=== PATIENT | male | born 1990 ===

== ENCOUNTER 2017-12-01 21:40 | Emergency (ER) | payer MEDICAID ==
[2017-12-01 21:40] VITALS: BMI 28.0
[2017-12-01 21:48] VITALS: BP 161/90; PULSE 88; RESP 16; TEMP 98; O2SAT 98
--- NOTE | 2017-12-01 23:01 | ED PDOC ---
HPI: Psych/Substance Abuse Time Seen by Provider: 12/01/17 21:56 Chief Complaint (Nursing): Substance Abuse Chief Complaint (Provider): PCPC use - Denies complaints History Per: Patient History/Exam Limitations: no limitations Onset/Duration Of Symptoms: Hrs Additional Complaint(s): 27 yo male with no medical problems brought in by EMS for evaluation of drug use. Pt reports using PCP earlier today. PT denies complaint. Pt alert and oriented. Past Medical History Reviewed: Historical Data, Nursing Documentation, Vital Signs Vital Signs: Last Vital Signs Temp 98.0 F 12/01/17 21:45 Pulse 88 12/01/17 21:45 Resp 16 12/01/17 21:45 BP 161/90 H 12/01/17 21:45 Pulse Ox 98 12/01/17 21:45 - Medical History PMH: Anxiety, Arthritis, Bipolar Disorder, Bronchitis, Depression Denies: Diabetes, Hepatitis, HIV, HTN, Chronic Kidney Disease, Seizures, Sexually Transmitted Disease - Surgical History Surgical History: Hernia Repair (ventral) - Family History Family History: States: Unknown Family Hx - Living Arrangements Living Arrangements: With Family - Social History Current smoker - smoking cessation education provided: No - Immunization History Hx Tetanus Toxoid Vaccination: Yes - Home Medications Home Medications: Ambulatory Orders Medication Instructions Recorded Cephalexin [Keflex] 500 mg PO Q6 #28 capsule 06/23/16 Polyethylene Glycol 3350 [Miralax] 17 gm PO DAILY PRN #30 each 08/07/16 Ibuprofen [Motrin] 600 mg PO Q6 #20 tab 11/28/16 oxyCODONE/Acetaminophen [Percocet 1 ea PO Q6 PRN #5 tab 11/28/16 5/325 mg Tab] Acetaminophen [Tylenol Extra 500 mg PO Q6 #20 tablet 11/29/16 Strength] Naproxen [Naprosyn] 500 mg PO BID PRN #15 tablet 12/05/16 - Allergies Allergies/Adverse Reactions: Allergies Allergy/AdvReac Type Severity Reaction Status Date / Time No Known Allergies Allergy Verified 12/01/17 21:45 Review of Systems ROS Statement: Except As Marked, All Systems Reviewed And Found Negative Constitutional: Negative for: Fever, Chills Cardiovascular: Negative for: Chest Pain Respiratory: Negative for: Cough, Shortness of Breath Gastrointestinal: Negative for: Nausea, Vomiting, Abdominal Pain Psych: Negative for: Depression, Psychosis, Suicidal ideation Physical Exam - Reviewed Nursing Documentation Reviewed: Yes Vital Signs Reviewed: Yes - Physical Exam Appears: Positive for: Well, Non-toxic, No Acute Distress Head Exam: Positive for: ATRAUMATIC, NORMAL INSPECTION, NORMOCEPHALIC Skin: Positive for: Normal Color, Warm, DRY Eye Exam: Positive for: Normal appearance, EOMI, PERRL ENT: Positive for: Normal ENT Inspection Neck: Positive for: Normal, Painless ROM Cardiovascular/Chest: Positive for: Regular Rate, Rhythm Respiratory: Positive for: CNT, Normal Breath Sounds Gastrointestinal/Abdominal: Positive for: Normal Exam, Bowel Sounds, Soft Back: Positive for: Normal Inspection Extremity: Positive for: Normal ROM Neurologic/Psych: Positive for: Alert, Oriented - ECG O2 Sat by Pulse Oximetry: 98 Disposition - Clinical Impression Clinical Impression: Phencyclidine (PCP) use disorder, mild - Patient ED Disposition Is Patient to be Admitted: No - Disposition Disposition: Routine/Home Disposition Time: 23:03 Condition: GOOD Instructions: Drug Abuse and Drug Addiction (DC)
== END 2017-12-02 00:15 | disposition home or self-care (01) ==
LOC: H.ER 21:40
DX: F16.10 Hallucinogen abuse, uncomplicated (principal)

== ENCOUNTER 2017-12-07 | Emergency (ER) | payer MEDICAID ==
[2017-12-07 00:01] VITALS: BMI 28.0
[2017-12-07 00:12] VITALS: O2SAT 97
--- NOTE | 2017-12-07 00:44 | ED PDOC ---
HPI: Psych/Substance Abuse Chief Complaint (Provider): edp Additional Complaint(s): 27 y/o male brought in by EMS for evaluation. Patient was found walking streets with bizarre behavior. Patient awake, unwilling to answer questions. Denies drug/alcohol use. Here for PCP use last week as per chart. <Katheryn Francis - Last Filed: 12/07/17 06:07> <Hany Rogers - Last Filed: 12/07/17 08:03> Time Seen by Provider: 12/07/17 00:17 Chief Complaint (Nursing): Psychiatric Evaluation Supervising Attending Note - Attestation: I have personally seen and examined this patient.: Yes I have fully participated in the care of the patient.: Yes I have reviewed all pertinent clinical information, including history, physical exam and plan: Yes - Notes: Notes:: [address] Arevalo pending Crisis eval. Pt. too sedated at this time for eval. <Hany Rogers - Last Filed: 12/07/17 08:03> Past Medical History Reviewed: Historical Data, Nursing Documentation, Vital Signs Vital Signs: Last Vital Signs Temp 98.4 F 12/07/17 00:08 Pulse 96 H 12/07/17 00:08 Resp 17 12/07/17 00:08 BP 146/93 H 12/07/17 00:08 Pulse Ox 97 12/07/17 00:08 - Medical History PMH: Anxiety, Arthritis, Bipolar Disorder, Bronchitis, Depression Denies: Diabetes, Hepatitis, HIV, HTN, Chronic Kidney Disease, Seizures, Sexually Transmitted Disease - Surgical History Surgical History: Hernia Repair (ventral) - Family History Family History: States: Unknown Family Hx - Immunization History Hx Tetanus Toxoid Vaccination: Yes <Katheryn Francis - Last Filed: 12/07/17 06:07> Vital Signs: Last Vital Signs Temp 98.4 F 12/07/17 00:08 Pulse 70 12/07/17 04:59 Resp 18 12/07/17 04:59 BP 124/93 H 12/07/17 04:59 Pulse Ox 97 12/07/17 06:08 <Hany Rogers - Last Filed: 12/07/17 08:03> - Home Medications Home Medications: Ambulatory Orders Medication Instructions Recorded Cephalexin [Keflex] 500 mg PO Q6 #28 capsule 06/23/16 Polyethylene Glycol 3350 [Miralax] 17 gm PO DAILY PRN #30 each 08/07/16 Ibuprofen [Motrin] 600 mg PO Q6 #20 tab 11/28/16 oxyCODONE/Acetaminophen [Percocet 1 ea PO Q6 PRN #5 tab 11/28/16 5/325 mg Tab] Acetaminophen [Tylenol Extra 500 mg PO Q6 #20 tablet 11/29/16 Strength] Naproxen [Naprosyn] 500 mg PO BID PRN #15 tablet 12/05/16 - Allergies Allergies/Adverse Reactions: Allergies Allergy/AdvReac Type Severity Reaction Status Date / Time No Known Allergies Allergy Verified 12/07/17 00:12 Review of Systems ROS Statement: Except As Marked, All Systems Reviewed And Found Negative Psych: Positive for: Psychosis <Katheryn Francis - Last Filed: 12/07/17 06:07> Physical Exam - Reviewed Nursing Documentation Reviewed: Yes Vital Signs Reviewed: Yes - Physical Exam Appears: Positive for: Well, Non-toxic, Uncomfortable (pacing outside exam room) Head Exam: Positive for: ATRAUMATIC, NORMAL INSPECTION, NORMOCEPHALIC Skin: Positive for: Normal Color Eye Exam: Positive for: Normal appearance Cardiovascular/Chest: Positive for: Regular Rate, Rhythm Respiratory: Positive for: Normal Breath Sounds Gastrointestinal/Abdominal: Positive for: Normal Exam Back: Positive for: Normal Inspection Extremity: Positive for: Normal ROM Neurologic/Psych: Positive for: Alert (x2) <Katheryn Francis - Last Filed: 12/07/17 06:07> - Laboratory Results Result Diagrams: 12/07/17 01:29 12/07/17 01:29 - ECG O2 Sat by Pulse Oximetry: 97 - Progress ED Course And Treament: labs, urine Patient uncooperative; refusing to return to exam bed or change in to hospital gown. Patient unwilling to comply with alternative measures offered; patient restrained and medicated for acute agitation/psychosis. 2:30 Patient sleeping; no distress 4:00 Patient sleeping; no distress 5:30 Patient awake, agitated. Stating "I am God, look at me" Patient out of exam room , refusing to return to room or provide urine sample. Patient restrained and medicated for agitation. <Katheryn Francis - Last Filed: 12/07/17 06:07> - Laboratory Results Result Diagrams: 12/07/17 01:29 12/07/17 01:29 <Hany Rogers - Last Filed: 12/07/17 08:03> Disposition - Disposition Disposition Time: 06:00 Patient Signed Over To: Hany Rogers Handoff Comments: pending uds, crisis eval <Katheryn Francis - Last Filed: 12/07/17 06:07> <Hany Rogers - Last Filed: 12/07/17 08:03> - Clinical Impression Clinical Impression: Phencyclidine (PCP) use disorder, mild - Disposition Condition: STABLE Forms: [employer] (Russian)
[2017-12-07 01:33] LABS: BASO # 0.1 K/uL (0.0-0.2); BASO % 0.4 % (0.0-2.0); EOS # 0.1 K/uL (0.0-0.7); EOS % 0.4 % (0.0-4.0); HEMOGLOBIN 15.2 g/dL (12.0-18.0); LYMPH % 14.7 % (20.0-40.0); MEAN CELL VOLUME 92.3 fl (80.0-94.0); MEAN CORPUSCULAR HGB CONC 33.6 g/dL (33.0-37.0); MEAN PLATELET VOLUME 7.4 fl (7.2-11.7); MONO # 1.1 K/uL (0.0-0.8); MONO % 8.4 % (0.0-10.0); NEUT # 10.3 K/uL (1.8-7.0); NEUT % 76.1 % (50.0-75.0); RBC 4.91 Mil/uL (4.40-5.90); RED CELL DISTRIBUTION WIDTH 13.8 % (11.5-14.5); WHITE BLOOD COUNT 13.5 K/uL (4.8-10.8)
[2017-12-07 01:41] LABS: ALB/GLOB RATIO 1.4 (1.0-2.1); ALBUMIN 4.4 g/dL (3.5-5.0); ALT/SGPT 47 U/L (21-72); AST/SGOT 78 U/L (17-59); BLOOD UREA NITROGEN 17 mg/dl (9-20); CALCIUM 9.4 mg/dL (8.4-10.2); GFR AFRICAN-AMERICAN > 60; GFR NON-AFRICAN AMERICAN > 60
[2017-12-07 05:58] LABS: URINE BACTERIA RARE (<OCC); URINE BILIRUBIN NEGATIVE (NEGATIVE); URINE BLOOD MODERATE (NEGATIVE); URINE CLARITY CLOUDY (Clear); URINE COLOR AMBER (YELLOW); URINE GLUCOSE (UA) NEG (Normal); URINE LEUKOCYTE ESTERASE NEG Leu/uL (Negative); URINE NITRATE NEGATIVE (NEGATIVE); URINE PROTEIN 100 mg/dL (NEGATIVE)
[2017-12-07 06:06] LABS: BARBITURATES, UR NEGATIVE (NEGATIVE); BENZODIAZEPINES, UR NEGATIVE (NEGATIVE); OPIATES, UR NEGATIVE (NEGATIVE); PHENCYCLIDINE, UR POSITIVE (NEGATIVE)
--- NOTE | 2017-12-07 08:45 | ED PDOC ---
- Laboratory Results Result Diagrams: 12/07/17 01:29 12/07/17 01:29 - ECG O2 Sat by Pulse Oximetry: 97 Medical Decision Making Medical Decision Making: Time: 07:00 Patient signed out to me by Dr. Rogers pending crisis evaluation. Time: 11:30 Patient will be discharged as per crisis Dr. Haas. Scribe Attestation: Documented by Magdy Martinez, acting as a scribe for Katlyn Arvealo MD. Provider Scribe Attestation: All medical record entries made by the Scribe were at my direction and personally dictated by me. I have reviewed the chart and agree that the record accurately reflects my personal performance of the history, physical exam, medical decision making, and the department course for this patient. I have also personally directed, reviewed, and agree with the discharge instructions and disposition. Disposition Counseled Patient/Family Regarding: Studies Performed, Diagnosis, Need For Followup - Clinical Impression Clinical Impression: Phencyclidine (PCP) use disorder, mild - POA Present On Arrival: None - Disposition Referrals: [facility] [Outside] [facility] [Outside] Disposition: Routine/Home Disposition Time: 11:20 Condition: IMPROVED Additional Instructions: follow up with outpatient services return to the ED with any worsening or concerning symptoms Instructions: Polysubstance Abuse Forms: [employer] (Citizen Of [place])
[2017-12-07 13:21] VITALS: BP 120/70; PULSE 78; RESP 20; TEMP 98
== END 2017-12-07 13:23 | disposition home or self-care (01) ==
LOC: H.ER
DX: F16.10 Hallucinogen abuse, uncomplicated (principal); Z00.8 Encounter for other general examination
CPT/HCPCS: 80053; 80320; 80324; 80345; 80346; 80349; 80353; 80358; 80361; 81003; 82948; 83992; 85025; 96372; 99285; J1630; J2060

== ENCOUNTER 2017-12-10 17:54 | Emergency (ER) | payer MEDICAID ==
[2017-12-10 17:55] VITALS: BMI 28.0
[2017-12-10 18:27] LABS: BASO # 0.1 K/uL (0.0-0.2); BASO % 0.5 % (0.0-2.0); EOS # 0.2 K/uL (0.0-0.7); EOS % 1.5 % (0.0-4.0); HEMOGLOBIN 15.3 g/dL (12.0-18.0); LYMPH # 2.4 K/uL (1.0-4.3); LYMPH % 16.9 % (20.0-40.0); MEAN CORPUSCULAR HGB CONC 33.4 g/dL (33.0-37.0); MEAN PLATELET VOLUME 7.5 fl (7.2-11.7); MONO # 1.3 K/uL (0.0-0.8); MONO % 9.2 % (0.0-10.0); NEUT # 10.3 K/uL (1.8-7.0); NEUT % 71.9 % (50.0-75.0); NRBC % 0.1 % (0.0-0.0); RBC 4.93 Mil/uL (4.40-5.90); RED CELL DISTRIBUTION WIDTH 13.6 % (11.5-14.5); WHITE BLOOD COUNT 14.3 K/uL (4.8-10.8)
--- NOTE | 2017-12-10 18:32 | ED PDOC ---
HPI: Psych/Substance Abuse Time Seen by Provider: 12/10/17 18:07 Chief Complaint (Nursing): Substance Abuse Chief Complaint (Provider): Psych and drug intoxication ED Caveat: Intoxicated History Per: Patient History/Exam Limitations: intoxication Onset/Duration Of Symptoms: Unknown, Other Current Symptoms Are (Timing): Still Present Additional Complaint(s): 27 yo male, brought in by EMS, with a history of Bipolar disorder, present to the ED complaining of chest pain, shortness of breath, psych evaluation, and drug intoxication, onset unknown. Patient was found in the hallway of his mother 's apartment after his mother had called the police. Of note, mother has a restraining order filed against the patient. Patient admits to using marijuana, but denies any other drug use. Reviews of Systems were unobtainable secondary to the patient's intoxicated status. Patient reports "being with god" and "seeing Rene". Past Medical History Reviewed: Historical Data, Nursing Documentation, Vital Signs Vital Signs: Last Vital Signs Temp 98.0 F 12/10/17 18:00 Pulse 88 12/10/17 18:00 Resp 16 12/10/17 18:00 BP 158/99 H 12/10/17 18:00 Pulse Ox 99 12/10/17 18:00 - Medical History PMH: Anxiety, Arthritis, Bipolar Disorder, Bronchitis, Depression Denies: Diabetes, Hepatitis, HIV, HTN, Chronic Kidney Disease, Seizures, Sexually Transmitted Disease - Surgical History Surgical History: Hernia Repair (ventral) - Family History Family History: States: Unknown Family Hx - Social History Current smoker - smoking cessation education provided: Yes (heavy smokes > 10 cigarettes daily) Ex-Smoker (has not smoked in the last 12 months): No Alcohol: Social Drugs: Cannabis - Immunization History Hx Tetanus Toxoid Vaccination: Yes - Home Medications Home Medications: Ambulatory Orders Medication Instructions Recorded Cephalexin [Keflex] 500 mg PO Q6 #28 capsule 06/23/16 Polyethylene Glycol 3350 [Miralax] 17 gm PO DAILY PRN #30 each 08/07/16 Ibuprofen [Motrin] 600 mg PO Q6 #20 tab 11/28/16 oxyCODONE/Acetaminophen [Percocet 1 ea PO Q6 PRN #5 tab 11/28/16 5/325 mg Tab] Acetaminophen [Tylenol Extra 500 mg PO Q6 #20 tablet 11/29/16 Strength] Naproxen [Naprosyn] 500 mg PO BID PRN #15 tablet 12/05/16 - Allergies Allergies/Adverse Reactions: Allergies Allergy/AdvReac Type Severity Reaction Status Date / Time No Known Allergies Allergy Verified 12/07/17 00:12 Review of Systems ROS Statement: Except As Marked, All Systems Reviewed And Found Negative Review Of Systems: ROS cannot be obtained secondary to pt's inabilty to answer questions. (limited due to patient's intoxicated state) Cardiovascular: Positive for: Chest Pain Respiratory: Positive for: Shortness of Breath Psych: Negative for: Suicidal ideation (or homicidal ideation) Physical Exam - Reviewed Nursing Documentation Reviewed: Yes Vital Signs Reviewed: Yes - Physical Exam Appears: Positive for: In Acute Distress (psychiatric distress) Head Exam: Positive for: ATRAUMATIC, NORMOCEPHALIC Skin: Positive for: Warm, Dry Eye Exam: Positive for: EOMI, PERRL ENT: Positive for: Pharynx Is (clear), Other (dry mucus membranes). Negative for: Pharyngeal Erythema, Tonsillar Exudate Neck: Positive for: Painless ROM, Supple Cardiovascular/Chest: Positive for: Regular Rate, Rhythm. Negative for: Murmur Respiratory: Positive for: Normal Breath Sounds. Negative for: Wheezing Gastrointestinal/Abdominal: Positive for: Soft. Negative for: Tenderness Back: Positive for: Normal Inspection. Negative for: Decreased ROM Extremity: Positive for: Normal ROM. Negative for: Deformity Lymphatic: Negative for: Adenopathy Neurologic/Psych: Positive for: Alert, Oriented (x1), Other (responding to internal stimuli, has poor concentration, and disorganized though process). Negative for: Motor/Sensory Deficits - Laboratory Results Result Diagrams: 12/10/17 18:22 12/10/17 18:22 - ECG ECG: Positive for: Interpreted By Me, Viewed By Me ECG Rhythm: Positive for: Normal QRS, Normal ST Segment, Sinus Rhythm (normal) Rate: 65 O2 Sat by Pulse Oximetry: 99 (RA) Pulse Ox Interpretation: Normal - Critical Care Total Time (In Min): 30 Documented Critical Care: Time excludes all time spent performint seperately billable procedures Medical Decision Making Medical Decision Making: Time: --18:15 Impression: --Drug intoxication with h/o bipolar disorder Drug induced psychosis vs decompensated bipolar disorder vs electrolyte abnormality vs metabolic encephalopathy Pt agitated, trying to leave, danger to self and others. Pt medicated for relief of psychosis Plan: --ECG --Alcohol Serum --Labs --Drug Screen, Urine --magnesium --phosphorous --troponin I --ED Urine Dip --Chest X-ray Two views --Ativan 2mg IM --1:1 Observation --Haldol Reassess --1900 Pt sleeping comfortably. Sedated but arousable to deep stimulation. --2200 Sleeping comfortably. Stable. Scribe Attestation: Documented by Chandra Muir acting as a scribe for Jose Caceres MD. Provider Attestation: All medical record entries made by the Scribe were at my direction and personally dictated by me. I have reviewed the chart and agree that the record accurately reflects my personal performance of the history, physical exam, medical decision making, and the department course for this patient. I have also personally directed, reviewed, and agree with the discharge instructions and disposition. Disposition - Clinical Impression Clinical Impression: Psychosis - Disposition Disposition: Transfer of Care Disposition Time: 00:00 Condition: STABLE Patient Signed Over To: Hany Rogers Handoff Comments: Pending sobriety and reeval and final ER disposition
[2017-12-10 18:56] LABS: ALB/GLOB RATIO 1.3 (1.0-2.1); ALBUMIN 4.2 g/dL (3.5-5.0); ALT/SGPT 49 U/L (21-72); AST/SGOT 92 U/L (17-59); BLOOD UREA NITROGEN 16 mg/dl (9-20); CALCIUM 9.5 mg/dL (8.4-10.2); GFR AFRICAN-AMERICAN > 60; GFR NON-AFRICAN AMERICAN > 60; MAGNESIUM 2.1 MG/DL (1.6-2.3)
[2017-12-10 19:57] LABS: BARBITURATES, UR NEGATIVE (NEGATIVE); BENZODIAZEPINES, UR NEGATIVE (NEGATIVE); OPIATES, UR NEGATIVE (NEGATIVE); PHENCYCLIDINE, UR POSITIVE (NEGATIVE)
--- NOTE | 2017-12-11 01:07 | ED PDOC ---
- Laboratory Results Result Diagrams: 12/10/17 18:22 12/10/17 18:22 - ECG O2 Sat by Pulse Oximetry: 99 (RA) Medical Decision Making Medical Decision Making: Time: 00:00 Patient is signed over to me by Dr. Araceli Christy pending reevaluation. 0400 Patient is now awake, alert, oriented, steady gait, no longer religiously preoccupied. Stable for discharge. Scribe Attestation: Documented by Gen Olivier acting as a scribe for Hany Rogers MD. Scribe Attestation: All medical record entries made by the Scribe were at my direction and personally dictated by me. I have reviewed the chart and agree that the record accurately reflects my personal performance of the history, physical exam, medical decision making, and the department course for this patient. I have also personally directed, reviewed, and agree with the discharge instructions and disposition. Disposition - Clinical Impression Clinical Impression: Psychosis, Phencyclidine (PCP) use disorder, mild - POA Present On Arrival: None - Disposition Referrals: [facility] [Outside] Disposition: Routine/Home Disposition Time: 04:00 Condition: STABLE Instructions: Drug Abuse and Drug Addiction (DC), Drug Abuse Treatment Forms: [employer] (Qatari)
[2017-12-11 07:17] VITALS: RESP 19
[2017-12-11 07:18] VITALS: BP 117/63; PULSE 73; TEMP 98; O2SAT 100
--- NOTE | 2017-12-11 11:01 | RAD ---
HISTORY: chest pain COMPARISON: Comparison made with chest radiograph 12/05/2016 FINDINGS: LUNGS: No active pulmonary disease. PLEURA: No significant pleural effusion identified, no pneumothorax apparent. CARDIOVASCULAR: Normal. OSSEOUS STRUCTURES: No significant abnormalities. VISUALIZED UPPER ABDOMEN: Normal. OTHER FINDINGS: None. IMPRESSION: No active disease.
--- NOTE | 2017-12-13 12:23 | CARD ---
APPROVED REPORT EKG Measurement Heart [id number] <Conclusion> Normal sinus rhythm with sinus arrhythmia Incomplete right bundle branch block Left anterior fascicular block Abnormal ECG
== END 2017-12-11 07:18 | disposition home or self-care (01) ==
LOC: H.ER 17:54
DX: F29 Unspecified psychosis not due to a substance or known physiological condition (principal); F16.10 Hallucinogen abuse, uncomplicated; F31.9 Bipolar disorder, unspecified; F41.9 Anxiety disorder, unspecified; F12.90 Cannabis use, unspecified, uncomplicated; F17.210 Nicotine dependence, cigarettes, uncomplicated
CPT/HCPCS: 71045; 80053; 80320; 80324; 80345; 80346; 80349; 80353; 80358; 80361; 83735; 83992; 84100; 84484; 85025; 93005; 96372; 99285; J1630; J2060

== ENCOUNTER 2017-12-11 15:53 | Emergency (ER) | payer MEDICAID ==
[2017-12-11 15:54] VITALS: BMI 28.0
[2017-12-11 15:58] VITALS: TEMP 98.2; O2SAT 100
--- NOTE | 2017-12-11 16:26 | ED PDOC ---
HPI: Chest Pain Time Seen by Provider: 12/11/17 16:12 Chief Complaint (Nursing): Chest Pain Chief Complaint (Provider): Chest pain History Per: Patient History/Exam Limitations: no limitations Onset/Duration Of Symptoms: Mins Current Symptoms Are (Timing): Gone Now Associated Symptoms: denies: Nausea, Dyspnea, Diaphoresis, Syncope Additional Complaint(s): 27yo male, presents to ER with complaints of chest pain which started while he was riding his bicycle on his way to the police station. Patient reports feeling anxious and states that may have caused the chest pain. He states the pain has spontaneously resolved and he has no other complaints. He denies any shortness of breath, abdominal pain, weakness, headache, leg pain, numbness or tingling. No other complaints. Marijuana use. Not suicidal or homicidal. PCP 4 days ago. Under arrest for warrant. Past Medical History Reviewed: Historical Data, Nursing Documentation, Vital Signs Vital Signs: Last Vital Signs Temp 98.2 F 12/11/17 15:56 Pulse 105 H 12/11/17 15:56 Resp 96 H 12/11/17 15:56 BP 149/96 H 12/11/17 15:56 Pulse Ox 100 12/11/17 16:28 - Medical History PMH: Anxiety, Arthritis, Bipolar Disorder, Bronchitis, Depression Denies: Diabetes, Hepatitis, HIV, HTN, Chronic Kidney Disease, Seizures, Sexually Transmitted Disease - Surgical History Surgical History: Hernia Repair (ventral) - Family History Family History: States: Unknown Family Hx - Immunization History Hx Tetanus Toxoid Vaccination: Yes - Home Medications Home Medications: Ambulatory Orders Medication Instructions Recorded Cephalexin [Keflex] 500 mg PO Q6 #28 capsule 06/23/16 Polyethylene Glycol 3350 [Miralax] 17 gm PO DAILY PRN #30 each 08/07/16 Ibuprofen [Motrin] 600 mg PO Q6 #20 tab 11/28/16 oxyCODONE/Acetaminophen [Percocet 1 ea PO Q6 PRN #5 tab 11/28/16 5/325 mg Tab] Acetaminophen [Tylenol Extra 500 mg PO Q6 #20 tablet 11/29/16 Strength] Naproxen [Naprosyn] 500 mg PO BID PRN #15 tablet 12/05/16 - Allergies Allergies/Adverse Reactions: Allergies Allergy/AdvReac Type Severity Reaction Status Date / Time No Known Allergies Allergy Verified 12/07/17 00:12 Review of Systems ROS Statement: Except As Marked, All Systems Reviewed And Found Negative Constitutional: Negative for: Fever, Chills Cardiovascular: Positive for: Chest Pain (now resolved) Respiratory: Negative for: Shortness of Breath Gastrointestinal: Negative for: Abdominal Pain Musculoskeletal: Negative for: Leg Pain Neurological: Negative for: Weakness, Numbness Physical Exam - Reviewed Nursing Documentation Reviewed: Yes Vital Signs Reviewed: Yes - Physical Exam Appears: Positive for: Non-toxic, No Acute Distress Head Exam: Positive for: ATRAUMATIC, NORMAL INSPECTION, NORMOCEPHALIC Skin: Positive for: Normal Color Eye Exam: Positive for: Normal appearance Neck: Positive for: Supple Cardiovascular/Chest: Positive for: Regular Rate, Rhythm. Negative for: Murmur Respiratory: Positive for: Normal Breath Sounds. Negative for: Wheezing, Respiratory Distress Pulses-Dorsalis Pedis (L): 2+ Pulses-Dorsalis Pedis (R): 2+ Gastrointestinal/Abdominal: Positive for: Normal Exam, Soft. Negative for: Tenderness Back: Positive for: Normal Inspection. Negative for: L CVA Tenderness, R CVA Tenderness Extremity: Positive for: Normal ROM. Negative for: Pedal Edema, Deformity Neurologic/Psych: Positive for: Alert, Oriented - ECG O2 Sat by Pulse Oximetry: 100 (RA) Pulse Ox Interpretation: Normal - Progress ED Course And Treament: 1711: Stable. AAOx3. Pain free. Tolerated po. Fu with pcp. Crisis saw pt. Does not meet criteria for admit. Medical Decision Making Medical Decision Making: Impression: Chest pain now resolved Plan: -- EKG -- Crisis evaluation -- Motrin 600 mg PO Scribe Attestation: Documented by Bia Menezes acting as a scribe for Sourav Gonzáles MD. Provider Attestation: All medical record entries made by the Scribe were at my direction and personally dictated by me. I have reviewed the chart and agree that the record accurately reflects my personal performance of the history, physical exam, medical decision making, and the department course for this patient. I have also personally directed, reviewed, and agree with the discharge instructions and disposition. Disposition - Clinical Impression Clinical Impression: Chest wall pain, Medical clearance for incarceration - Patient ED Disposition Is Patient to be Admitted: No Counseled Patient/Family Regarding: Studies Performed, Diagnosis, Need For Followup - Disposition Referrals: [facility] [Outside] - 12/13/17 Disposition: Routine/Home Disposition Time: 17:13 Condition: STABLE Additional Instructions: Return if not better in 3 days. You are medically and psychiatrically cleared for incarceration. Instructions: Chest Pain That Is Not Caused by the Heart (DC)
[2017-12-11 17:40] VITALS: BP 140/90; PULSE 89; RESP 18
--- NOTE | 2017-12-13 12:16 | CARD ---
APPROVED REPORT EKG Measurement Heart [id number] <Conclusion> Normal sinus rhythm Left axis deviation Abnormal ECG
== END 2017-12-11 17:37 ==
LOC: H.ER 15:53
DX: R07.89 Other chest pain; F31.9 Bipolar disorder, unspecified; F41.9 Anxiety disorder, unspecified

== ENCOUNTER 2017-12-17 06:05 | Emergency (ER) | payer MEDICAID ==
[2017-12-17 06:05] VITALS: BMI 28.0
[2017-12-17 06:17] VITALS: BP 141/86; PULSE 94; RESP 18; O2SAT 99
--- NOTE | 2017-12-17 06:50 | ED PDOC ---
Lower Extremity Pain/Injury Time Seen by Provider: 12/17/17 06:25 Chief Complaint (Nursing): Lower Extremity Problem/Injury Chief Complaint (Provider): lower extremity problem History Per: Patient History/Exam Limitations: no limitations Onset/Duration Of Symptoms: Days (12/17/17) Current Symptoms Are (Timing): Better Additional Complaint(s): 27 y/o male presents to the ED complaining of foot pain. He was present in the ED waiting room stating he wanted to rest and then mentioned his feet hurt. Denies any injury or fever. PMD: Provider TBD Past Medical History Reviewed: Historical Data, Nursing Documentation, Vital Signs Vital Signs: Last Vital Signs Temp Pulse 94 H 12/17/17 06:14 Resp 18 12/17/17 06:14 BP 141/86 12/17/17 06:14 Pulse Ox 99 12/17/17 06:14 - Medical History PMH: Anxiety, Arthritis, Bipolar Disorder, Bronchitis, Depression Denies: Diabetes, Hepatitis, HIV, HTN, Chronic Kidney Disease, Seizures, Sexually Transmitted Disease - Surgical History Surgical History: Hernia Repair (ventral) - Family History Family History: States: Unknown Family Hx - Social History Current smoker - smoking cessation education provided: Yes Drugs: Other (PCP) - Immunization History Hx Tetanus Toxoid Vaccination: Yes - Home Medications Home Medications: Ambulatory Orders Medication Instructions Recorded Cephalexin [Keflex] 500 mg PO Q6 #28 capsule 06/23/16 Polyethylene Glycol 3350 [Miralax] 17 gm PO DAILY PRN #30 each 08/07/16 Ibuprofen [Motrin] 600 mg PO Q6 #20 tab 11/28/16 oxyCODONE/Acetaminophen [Percocet 1 ea PO Q6 PRN #5 tab 11/28/16 5/325 mg Tab] Acetaminophen [Tylenol Extra 500 mg PO Q6 #20 tablet 11/29/16 Strength] Naproxen [Naprosyn] 500 mg PO BID PRN #15 tablet 12/05/16 Ibuprofen [Motrin Tab] 600 mg PO Q6 PRN #12 tab 12/17/17 - Allergies Allergies/Adverse Reactions: Allergies Allergy/AdvReac Type Severity Reaction Status Date / Time No Known Allergies Allergy Verified 12/07/17 00:12 Review of Systems ROS Statement: Except As Marked, All Systems Reviewed And Found Negative Constitutional: Negative for: Fever Musculoskeletal: Positive for: Foot Pain Skin: Negative for: Other (injury) Physical Exam - Reviewed Nursing Documentation Reviewed: Yes Vital Signs Reviewed: Yes - Physical Exam Extremity: Positive for: Normal ROM. Negative for: Tenderness, Pedal Edema, Calf Tenderness, Capillary Refill, Deformity, Swelling - ECG O2 Sat by Pulse Oximetry: 99 (RA) Pulse Ox Interpretation: Normal Medical Decision Making Medical Decision Making: Time:06:40 Initial Impression: 27 y/o male with malingering foot pain. Clinical Impression: Foot pain, bilateral and Malingering Upon provider evaluation patient is medically stable, and requires no further treatment in the ED at this time. Patient will be discharged with Motrin 600mg for plantar fasciitis. Counseling was provided and all questions were answered regarding diagnosis and need for follow up with PMD. There is agreement to discharge plan. Return if symptoms persist or worsen. Documented by Elham Dowd acting as a scribe for Deni Holt MD. All medical record entries made by the Scribe were at my direction and personally dictated by me. I have reviewed the chart and agree that the record accurately reflects my personal performance of the history, physical exam, medical decision making, and the department course for this patient. I have also personally directed, reviewed, and agree with the discharge instructions and disposition. Disposition - Clinical Impression Clinical Impression: Foot pain, bilateral, Malingering - Patient ED Disposition Is Patient to be Admitted: No - Disposition Disposition: Routine/Home Disposition Time: 06:50 Condition: STABLE Prescriptions: Ibuprofen [Motrin Tab] 600 mg PO Q6 PRN #12 tab PRN Reason: foot pain Forms: [employer] (Australian)
== END 2017-12-17 06:33 | disposition home or self-care (01) ==
LOC: H.ER 06:05
DX: Z76.5 Malingerer [conscious simulation] (principal)

== ENCOUNTER 2017-12-18 05:02 | Emergency (ER) | payer MEDICAID ==
[2017-12-18 05:03] VITALS: BMI 28.0
[2017-12-18 05:17] VITALS: BP 134/77; PULSE 83; RESP 16; TEMP 97.7; O2SAT 96
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
== END 2017-12-18 07:16 | disposition home or self-care (01) ==
LOC: H.ER 05:02
DX: M54.9 Dorsalgia, unspecified (principal); F31.9 Bipolar disorder, unspecified; F41.9 Anxiety disorder, unspecified

== ENCOUNTER 2017-12-20 10:20 | Emergency (ER) | payer MEDICAID ==
[2017-12-20 10:20] VITALS: BMI 28.0
[2017-12-20 10:34] VITALS: BP 128/76; PULSE 90; RESP 20; O2SAT 98
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
[2017-12-20 10:51] VITALS: TEMP 98
== END 2017-12-20 11:30 | disposition home or self-care (01) ==
LOC: H.ER 10:20
DX: M54.9 Dorsalgia, unspecified (principal)
CPT/HCPCS: 96372; 99282; J1885

== ENCOUNTER 2017-12-23 23:17 | Emergency (ER) | payer MEDICAID ==
[2017-12-23 23:30] VITALS: BMI 23.7
[2017-12-23] MEDS ORDERED: Sodium Chloride 0.9% 1,000 ML IV STA (23:37)
[2017-12-23 23:57] LABS: BASO % 0.4 % (0.0-2.0); EOS # 0.3 K/uL (0.0-0.7); EOS % 2.5 % (0.0-4.0); LYMPH # 3.1 K/uL (1.0-4.3); LYMPH % 28.1 % (20.0-40.0); MEAN CELL VOLUME 93.4 fl (80.0-94.0); MEAN CORPUSCULAR HEMOGLOBIN 31.2 pg (27.0-31.0); MEAN CORPUSCULAR HGB CONC 33.4 g/dL (33.0-37.0); MEAN PLATELET VOLUME 7.4 fl (7.2-11.7); MONO # 0.9 K/uL (0.0-0.8); MONO % 7.8 % (0.0-10.0); NEUT # 6.7 K/uL (1.8-7.0); NEUT % 61.2 % (50.0-75.0); RBC 4.16 Mil/uL (4.40-5.90); RED CELL DISTRIBUTION WIDTH 13.9 % (11.5-14.5); WHITE BLOOD COUNT 10.9 K/uL (4.8-10.8)
[2017-12-24 00:05] LABS: ACETAMINOPHEN < 10.0 ug/ml (10.0-30.0); SALICYLATE < 1.0 mg/dl
[2017-12-24 00:07] LABS: BLOOD UREA NITROGEN 34 mg/dl (9-20); CALCIUM 8.6 mg/dL (8.4-10.2); GFR AFRICAN-AMERICAN > 60; GFR NON-AFRICAN AMERICAN > 60
--- NOTE | 2017-12-24 01:20 | ED PDOC ---
HPI: Psych/Substance Abuse Time Seen by Provider: 12/23/17 23:22 Chief Complaint (Nursing): Substance Abuse Chief Complaint (Provider): substance abuse History Per: Patient (poor historian) Onset/Duration Of Symptoms: Days (12/24/17) Modifying Factor(s): Other (2 doses of intranasal narcans) Associated Symptoms: Other (combative and uncooperative) Additional History Per: EMS Additional Complaint(s): 27 year old male was brought to the ED by EMS for drug intoxication. Patient was found on the ground with shallow breathing. He had received 2 doses of intranasal narcans. Upon arrival, patient was combative and uncooperative. Patient is unable to provide history. PMD: Non [facility] Provider Past Medical History Reviewed: Historical Data, Nursing Documentation, Vital Signs Vital Signs: Last Vital Signs Temp Pulse 133 H 12/23/17 23:42 Resp 22 12/23/17 23:42 BP 175/104 H 12/23/17 23:57 Pulse Ox 100 12/23/17 23:42 - Medical History PMH: Anxiety, Arthritis, Bipolar Disorder, Bronchitis, Depression Denies: Diabetes, Hepatitis, HIV, HTN, Chronic Kidney Disease, Seizures, Sexually Transmitted Disease - Surgical History Surgical History: Hernia Repair (ventral) - Family History Family History: States: Unknown Family Hx - Immunization History Hx Tetanus Toxoid Vaccination: Yes - Home Medications Home Medications: Ambulatory Orders Medication Instructions Recorded Cephalexin [Keflex] 500 mg PO Q6 #28 capsule 06/23/16 Polyethylene Glycol 3350 [Miralax] 17 gm PO DAILY PRN #30 each 08/07/16 Ibuprofen [Motrin] 600 mg PO Q6 #20 tab 11/28/16 oxyCODONE/Acetaminophen [Percocet 1 ea PO Q6 PRN #5 tab 11/28/16 5/325 mg Tab] Acetaminophen [Tylenol Extra 500 mg PO Q6 #20 tablet 11/29/16 Strength] Naproxen [Naprosyn] 500 mg PO BID PRN #15 tablet 12/05/16 Ibuprofen [Motrin Tab] 600 mg PO Q6 PRN #12 tab 12/17/17 Cyclobenzaprine [Cyclobenzaprine 10 mg PO BID #15 tab 12/18/17 HCl] - Allergies Allergies/Adverse Reactions: Allergies Allergy/AdvReac Type Severity Reaction Status Date / Time No Known Allergies Allergy Verified 12/20/17 10:28 Review of Systems ROS Statement: Except As Marked, All Systems Reviewed And Found Negative Psych: Positive for: Other (substance abuse). Negative for: Suicidal ideation ( homicidal ideation) Physical Exam - Reviewed Nursing Documentation Reviewed: Yes Vital Signs Reviewed: Yes - Physical Exam Appears: Positive for: Non-toxic, No Acute Distress Head Exam: Positive for: ATRAUMATIC, NORMAL INSPECTION, NORMOCEPHALIC Skin: Positive for: Normal Color, Warm, Dry Eye Exam: Positive for: EOMI, Normal appearance, PERRL ENT: Positive for: Normal ENT Inspection Neck: Positive for: Normal, Painless ROM, Supple. Negative for: Decreased ROM, Limited ROM Cardiovascular/Chest: Positive for: Regular Rate, Rhythm, Tachycardia Respiratory: Positive for: Normal Breath Sounds. Negative for: Decreased Breath Sounds, Accessory Muscle Use, Wheezing Gastrointestinal/Abdominal: Positive for: Normal Exam, Bowel Sounds, Soft. Negative for: Tenderness Extremity: Positive for: Normal ROM. Negative for: Tenderness, Pedal Edema, Deformity Neurologic/Psych: Positive for: Alert, Oriented (x3), Mood/Affect (under influence), Other (moved all extremities to get out of bed) - Laboratory Results Result Diagrams: 12/23/17 23:54 12/23/17 23:54 - ECG O2 Sat by Pulse Oximetry: 100 (RA) Pulse Ox Interpretation: Normal Medical Decision Making Medical Decision Making: Time: 23:37 A/P: Patient was in ED for drug abuse and was uncooperative. Required physical restraints despite verbal de-escalation. -- EKG --Acetaminophen Stat --Alcohol Serum --BMP --Drug Screen --Salicylate --CBC w/ differentials --Normal Saline 1, 000 mls/hr --Restraint: Violent or harm to self/others --Urinalysis --Reevaluation 0700 Patient will be endorsed to Dr. Duggan pending sobriety. Scribe Attestation: Documented by Elham Dowd, acting as a scribe for Hany Rogers MD Provider Scribe Attestation: All medical record entries made by the Scribe were at my direction and personally dictated by me. I have reviewed the chart and agree that the record accurately reflects my personal performance of the history, physical exam, medical decision making, and the department course for this patient. I have also personally directed, reviewed, and agree with the discharge instructions and disposition. Disposition - Clinical Impression Clinical Impression: Polysubstance abuse - Patient ED Disposition Is Patient to be Admitted: Transfer of Care - Disposition Disposition: Transfer of Care Disposition Time: 07:00 Condition: STABLE Forms: [employer] (Guinean) Patient Signed Over To: Hamilton Duggan Handoff Comments: pending sobriety
[2017-12-24 06:29] VITALS: BP 122/74; PULSE 74; RESP 20; TEMP 97.9
[2017-12-24 06:38] VITALS: O2SAT 100
--- NOTE | 2017-12-24 07:16 | ED PDOC ---
- Laboratory Results Result Diagrams: 12/23/17 23:54 12/23/17 23:54 - ECG O2 Sat by Pulse Oximetry: 100 (RA) - Progress Re-evaluation Time: 07:40 Condition: Improved (Awake alertb oriented x 3. No focal neuro deficits) Medical Decision Making Medical Decision Making: Time: 0700 --Patient was endorsed to provider by Dr. Hany Rogers. Pending clinical sobriety. Scribe Attestation: Documented by Kaylee Villaseñor, acting as a scribe for Hamilton Duggan MD. Provider Scribe Attestation: All medical record entries made by the Scribe were at my direction and personally dictated by me. I have reviewed the chart and agree that the record accurately reflects my personal performance of the history, physical exam, medical decision making, and the department course for this patient. I have also personally directed, reviewed, and agree with the discharge instructions and disposition. Disposition - Clinical Impression Clinical Impression: Polysubstance abuse - POA Present On Arrival: None - Disposition Referrals: [facility] [Outside] Disposition: Routine/Home Disposition Time: 07:41 Condition: FAIR Instructions: Polysubstance Abuse (DC) Forms: [employer] (Lao)
[2017-12-24 08:06] LABS: URINE BILIRUBIN NEGATIVE (NEGATIVE); URINE BLOOD NEGATIVE (NEGATIVE); URINE CLARITY CLEAR (Clear); URINE COLOR YELLOW (YELLOW); URINE GLUCOSE (UA) NEG (Normal); URINE LEUKOCYTE ESTERASE NEG Leu/uL (Negative); URINE PROTEIN NEGATIVE (NEGATIVE); URINE UROBILINOGEN 0.2-1.0 mg/dL (0.2-1.0)
[2017-12-24 08:15] LABS: BARBITURATES, UR NEGATIVE (NEGATIVE); BENZODIAZEPINES, UR NEGATIVE (NEGATIVE); OPIATES, UR NEGATIVE (NEGATIVE); PHENCYCLIDINE, UR POSITIVE (NEGATIVE)
--- NOTE | 2017-12-24 11:58 | CARD ---
APPROVED REPORT EKG Measurement Heart [id number] <Conclusion> Normal sinus rhythm Cannot rule out Anterior infarct, age undetermined Abnormal ECG
== END 2017-12-24 08:25 | disposition home or self-care (01) ==
LOC: H.ER 23:17
DX: F19.10 Other psychoactive substance abuse, uncomplicated (principal); F31.9 Bipolar disorder, unspecified; F41.9 Anxiety disorder, unspecified
CPT/HCPCS: 80048; 80320; 80324; 80329; 80345; 80346; 80349; 80353; 80358; 80361; 81003; 83992; 85025; 93005; 99285; J7040

== ENCOUNTER 2017-12-25 04:07 | Emergency (ER) | payer MEDICAID ==
[2017-12-25 04:25] VITALS: BMI 29.7
[2017-12-25 04:29] VITALS: TEMP 98.6; O2SAT 97
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
[2017-12-25 06:03] VITALS: BP 117/67; PULSE 100; RESP 16
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
== END 2017-12-25 07:03 | disposition home or self-care (01) ==
LOC: H.ER 04:07
DX: S09.90XA Unspecified injury of head, initial encounter (principal); S02.2XXA Fracture of nasal bones, initial encounter for closed fracture; S19.9XXA Unspecified injury of neck, initial encounter; Y04.0XXA Assault by unarmed brawl or fight, initial encounter; Y92.89 Other specified places as the place of occurrence of the external cause; F31.9 Bipolar disorder, unspecified; F41.9 Anxiety disorder, unspecified

== ENCOUNTER 2017-12-25 15:14 | Inpatient (IN) | payer MEDICAID ==
[2017-12-25 15:14] VITALS: BMI 29.7
--- NOTE | 2017-12-25 16:09 | ED PDOC ---
HPI: Psych/Substance Abuse Time Seen by Provider: 12/25/17 15:37 Chief Complaint (Nursing): Psychiatric Evaluation Chief Complaint (Provider): Anxiety History Per: Patient History/Exam Limitations: no limitations Current Symptoms Are (Timing): Still Present Suicide/Self Injury Attempted (Context): None Associated Symptoms: Anxiety Additional Complaint(s): Patient presents via EMS and accompanied by Gerardo FARLEY for psychiatric evaluation for anxiety. Patient (+) flight of ideas. Other psychiatric symptoms : (-) hallucinations, (-) suicidal ideation, (-) homicidal ideation. Otherwise: (-) trauma, (-) fever, (-)headache, (-) dyspnea, (-) vomiting, (-) substance abuse, (-) patient intent of initiating a suicide attempt, (-) plan. PCP: None Past Medical History Reviewed: Historical Data, Nursing Documentation, Vital Signs Vital Signs: Last Vital Signs Temp 98.0 F 12/25/17 15:18 Pulse 105 H 12/25/17 15:18 Resp 18 12/25/17 15:18 BP 155/84 H 12/25/17 15:18 Pulse Ox 99 12/25/17 15:18 - Medical History PMH: Anxiety, Arthritis, Bipolar Disorder, Bronchitis, Depression Denies: Diabetes, Hepatitis, HIV, HTN, Chronic Kidney Disease, Seizures, Sexually Transmitted Disease - Surgical History Surgical History: Hernia Repair (ventral) Denies: No Surg Hx - Family History Family History: States: Unknown Family Hx - Immunization History Hx Tetanus Toxoid Vaccination: Yes - Home Medications Home Medications: Ambulatory Orders Medication Instructions Recorded Cephalexin [Keflex] 500 mg PO Q6 #28 capsule 06/23/16 Polyethylene Glycol 3350 [Miralax] 17 gm PO DAILY PRN #30 each 08/07/16 Ibuprofen [Motrin] 600 mg PO Q6 #20 tab 11/28/16 oxyCODONE/Acetaminophen [Percocet 1 ea PO Q6 PRN #5 tab 11/28/16 5/325 mg Tab] Acetaminophen [Tylenol Extra 500 mg PO Q6 #20 tablet 11/29/16 Strength] Naproxen [Naprosyn] 500 mg PO BID PRN #15 tablet 12/05/16 Ibuprofen [Motrin Tab] 600 mg PO Q6 PRN #12 tab 12/17/17 Cyclobenzaprine [Cyclobenzaprine 10 mg PO BID #15 tab 12/18/17 HCl] Acetaminophen [Tylenol 325mg tab] 2 tab PO Q4 PRN #15 tab 12/25/17 - Allergies Allergies/Adverse Reactions: Allergies Allergy/AdvReac Type Severity Reaction Status Date / Time No Known Allergies Allergy Verified 12/25/17 04:24 Review of Systems ROS Statement: Except As Marked, All Systems Reviewed And Found Negative Psych: Positive for: Anxiety, Psychosis ((+) flight of ideas). Negative for: Depression, Suicidal ideation, Other ((-) homicidal ideation) Physical Exam - Reviewed Nursing Documentation Reviewed: Yes Vital Signs Reviewed: Yes - Physical Exam Comments: GENERAL APPEARANCE: Patient is awake, alert, oriented x 3, in no acute distress. SKIN: Warm, dry; (-) cyanosis HEAD: (-) scalp swelling, (-) scalp tenderness. EYES: (-) conjunctival pallor, (-) scleral icterus, (-) nystagmus. ENMT: Mucous membranes moist. Airway patent: (-) stridor. NECK: (-) tenderness, (-) stiffness, (-) lymphadenopathy. CHEST AND RESPIRATORY: (-) rales, (-) rhonchi, (-) wheezes; breath sounds equal. ABDOMEN: Soft, (-) distention, (-) tenderness, (-) guarding. NEURO AND PSYCH: Mental status as above. (+) Flight of ideas. Affect: Calm and cooperative. scheduling administrator: Intact. Pupils equal and reactive; EOMI; (-) facial asymmetry ; tongue and uvula midline. Strength and DTRs symmetric. - Laboratory Results Result Diagrams: 12/25/17 16:08 12/25/17 16:08 - ECG O2 Sat by Pulse Oximetry: 99 (RA) Pulse Ox Interpretation: Normal Medical Decision Making Medical Decision Makin Patient referred to crisis for evaluation. * EtOH serum * Labs * UDrug SCreen * UA * Crisis eval 1610 After crisis evaluation patient became agitated and uncooperative, posing a risk for elopement as well as for violent behavior to provider and medical staff. * Ativan 2mg PO * Haldol 5mg PO * 1:1 OBS * Restraints: violent Labs reviewed, patient is medically cleared for crisis evaluation. Based on history, exam and diagnostic results plan will be for inpatient psychiatric treatment. Patient voluntarily signing in for psychiatric admission for bipolar disorder. Scribe Attestation: Documented by Windy Guerrero acting as a scribe for Taylor Osuna PA-C. MD Christopheribrufino Attestation: All medical record entries made by the Scribe were at my direction and personally dictated by me. I have reviewed the chart and agree that the record accurately reflects my personal performance of the history, physical exam, medical decision making, and the department course for this patient. I have also personally directed, reviewed, and agree with the discharge instructions and disposition. Disposition - Clinical Impression Clinical Impression: Bipolar disorder with psychotic features - Patient ED Disposition Is Patient to be Admitted: Yes Counseled Patient/Family Regarding: Studies Performed, Diagnosis - Disposition Disposition Time: 16:00 Condition: STABLE Forms: [facility] (Yoruba) - PA / CHRISTIAN COUNSELOR / Resident Statement / has reviewed & agrees with the documentation as recorded.
[2017-12-25 16:32] LABS: BASO # 0.1 K/uL (0.0-0.2); BASO % 0.5 % (0.0-2.0); EOS # 0.5 K/uL (0.0-0.7); EOS % 4.1 % (0.0-4.0); HEMOGLOBIN 11.8 g/dL (12.0-18.0); LYMPH # 2.2 K/uL (1.0-4.3); LYMPH % 19.9 % (20.0-40.0); MEAN CELL VOLUME 92.4 fl (80.0-94.0); MEAN CORPUSCULAR HEMOGLOBIN 30.6 pg (27.0-31.0); MEAN CORPUSCULAR HGB CONC 33.1 g/dL (33.0-37.0); MEAN PLATELET VOLUME 7.2 fl (7.2-11.7); MONO # 1.1 K/uL (0.0-0.8); MONO % 9.5 % (0.0-10.0); NEUT # 7.4 K/uL (1.8-7.0); RBC 3.88 Mil/uL (4.40-5.90); WHITE BLOOD COUNT 11.3 K/uL (4.8-10.8)
[2017-12-25 16:36] LABS: ALB/GLOB RATIO 1.4 (1.0-2.1); ALBUMIN 3.9 g/dL (3.5-5.0); ALT/SGPT 52 U/L (21-72); AST/SGOT 73 U/L (17-59); BLOOD UREA NITROGEN 14 mg/dl (9-20); CALCIUM 9.2 mg/dL (8.4-10.2); GFR AFRICAN-AMERICAN > 60; GFR NON-AFRICAN AMERICAN > 60
[2017-12-26 00:26] VITALS: O2SAT 98
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
[2017-12-26] MEDS ORDERED: DiphenhydrAMINE 50 mg/ml Inj IM PRN (02:24)
[2017-12-26] MEDS ORDERED: Alum-Mag Hydrox-Simethicone Susp (30 mL) PO PRN (02:24)
[2017-12-26] MEDS ORDERED: Magnesium Hydroxide Susp 30 ml UD PO PRN (02:24)
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
[2017-12-26 10:32] LABS: T4 5.52 ug/dl (5.5-11.0)
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
--- NOTE | 2017-12-27 15:42 | PCM.PYCHPN ---
Psychiatric Progress Note - Psychiatric Progress Note Patient seen today, length of contact: pt evaluated discussed with team chart reviewed Patient Chief Complaint: I am not taking medications and I need to get out of here Problems Identified/Issues Discussed: pt angry irritable requesting discharge, delusional thought process , religously preoccupied, FLORIDALY PSYCHOTIC , PARANOID PT refusing medications and requesting to leave at the moment pt at current mental status disorganized and manic DSM 5 Symptoms Update: bipolar diorder manic severe with psychotic disorder cannabis induced psychosis pcp induced psychosis Medication Change: Yes (start seroquel) Medical Record Reviewed: Yes Mental Status Examination - Cognitive Function Orientation: Person, Place, Situation, Time Attention: Poor Concentration: Poor Association: Loose Fund of Knowledge: Poor Decription of patient's judgement and insights: impaired - Mood Mood: Anxious, Euphoric - Affect Affect: Broad - Speech Speech: Pressured - Formal Thought Process Formal Thought Process: Delusions, Paranoia, Flight of ideas Psychotic Thoughts and Behaviors: pt paranoid religously preoccupied floridaly psychotic - Suicidal Ideation Suicidal Ideation: No - Homicidal Ideation Homicidal Ideation: No Goal/Treatment Plan - Goal/Treatment Plan Need for Continued Stay: Severe depression anxiety, Discharge may exacerbated symptoms Progress Toward Problem(s) and Goals/Treatment Plan: pt floridaly psychotic disorganized, verblly threatening manic requesting discharge and refusing oral medications, pt will be given prn IM medications, haldol , ativan and benadryl for safety of self and others pt also will be screened for involuntary admission as pt at current mental status is danger to self or others seroquel 100mg bid and 200mg qhs depakote 500mg bid encourage compliance with oral medications Estimated Date of D/C: 12/31/17
[2017-12-27] MEDS: Divalproex 500 mg DR(BID formulation) PO SCH ×2 (18:27→19:22)
[2017-12-28 07:10] LABS: BARBITURATES, UR NEGATIVE (NEGATIVE); BENZODIAZEPINES, UR NEGATIVE (NEGATIVE); OPIATES, UR NEGATIVE (NEGATIVE); PHENCYCLIDINE, UR POSITIVE (NEGATIVE)
[2017-12-28 07:13] LABS: URINE BILIRUBIN NEGATIVE (NEGATIVE); URINE BLOOD SMALL (NEGATIVE); URINE CLARITY SLIGHTY-CLOUDY (Clear); URINE COLOR YELLOW (YELLOW); URINE GLUCOSE (UA) NEG (Normal); URINE LEUKOCYTE ESTERASE NEG Leu/uL (Negative); URINE PROTEIN NEGATIVE (NEGATIVE); URINE UROBILINOGEN 0.2-1.0 mg/dL (0.2-1.0)
[2017-12-28] MEDS: Divalproex 500 mg DR(BID formulation) PO SCH (08:20)
[2017-12-28 09:09] VITALS: RESP 20
[2017-12-28] MEDS ORDERED: DiphenhydrAMINE 50 mg/ml Inj IM PRN (11:38)
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
[2017-12-29] MEDS: Divalproex 500 mg DR(BID formulation) PO SCH ×2 (04:47→08:58)
[2017-12-29 09:04] VITALS: BP 118/70; PULSE 105; TEMP 96.8
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
== END 2017-12-29 14:01 | DRG 430 ==
LOC: H.ER 15:14 → H.ERHOLD 12-26 00:21 → H.PSYCH 12-26 01:11
PROVIDERS: ADMIT Psychiatry & Neurology Psychiatry; ATTEND Psychiatry & Neurology Psychiatry
PROC: GZHZZZZ Group Psychotherapy (ICD-10-PCS; principal; 2017-12-26)
DX: F31.64 Bipolar disorder, current episode mixed, severe, with psychotic features (principal); F12.10 Cannabis abuse, uncomplicated; F16.90 Hallucinogen use, unspecified, uncomplicated; F17.210 Nicotine dependence, cigarettes, uncomplicated

== ENCOUNTER 2018-01-05 20:28 | Emergency (ER) | payer MEDICAID ==
[2018-01-05 20:28] VITALS: BMI 29.7
--- NOTE | 2018-01-05 21:52 | ED PDOC ---
HPI: Back Time Seen by Provider: 01/05/18 21:40 Chief Complaint (Nursing): Back Pain Chief Complaint (Provider): Back pain and b/l knee pain History Per: Patient History/Exam Limitations: no limitations Onset/Duration Of Symptoms: Days (several) Current Symptoms Are (Timing): Still Present Quality Of Discomfort: Aching, "Pain" Previous Symptoms: Back Pain Associated Symptoms: None Additional Complaint(s): Sesar Angeles is a 27 year old male, with no significant past medical history, who presents to the emergency department complaining of lower back pain and b/l posterior knee pain onset for several days. Patient reports he has been doing a lot of walking with a backpack. He did not take any pain medication. He denies any other medical complaints. PMD: None provided Past Medical History Reviewed: Historical Data, Nursing Documentation, Vital Signs Vital Signs: Last Vital Signs Temp 98.3 F 01/05/18 20:32 Pulse 122 H 01/05/18 20:32 Resp 17 01/05/18 20:32 BP 132/73 01/05/18 20:32 Pulse Ox 98 01/05/18 20:32 - Medical History PMH: Anxiety, Arthritis, Bipolar Disorder, Bronchitis, Depression Denies: Diabetes, Hepatitis, HIV, HTN, Chronic Kidney Disease, Seizures, Sexually Transmitted Disease - Surgical History Surgical History: Hernia Repair (ventral) - Family History Family History: States: Unknown Family Hx - Immunization History Hx Tetanus Toxoid Vaccination: Yes - Home Medications Home Medications: Ambulatory Orders Medication Instructions Recorded Cephalexin [Keflex] 500 mg PO Q6 #28 capsule 06/23/16 Polyethylene Glycol 3350 [Miralax] 17 gm PO DAILY PRN #30 each 08/07/16 Ibuprofen [Motrin] 600 mg PO Q6 #20 tab 11/28/16 oxyCODONE/Acetaminophen [Percocet 1 ea PO Q6 PRN #5 tab 11/28/16 5/325 mg Tab] Acetaminophen [Tylenol Extra 500 mg PO Q6 #20 tablet 11/29/16 Strength] Naproxen [Naprosyn] 500 mg PO BID PRN #15 tablet 12/05/16 Ibuprofen [Motrin Tab] 600 mg PO Q6 PRN #12 tab 12/17/17 Cyclobenzaprine [Cyclobenzaprine 10 mg PO BID #15 tab 12/18/17 HCl] Acetaminophen [Tylenol 325mg tab] 2 tab PO Q4 PRN #15 tab 12/25/17 Cyclobenzaprine [Flexeril] 10 mg PO TID #27 tab 01/05/18 - Allergies Allergies/Adverse Reactions: Allergies Allergy/AdvReac Type Severity Reaction Status Date / Time No Known Allergies Allergy Verified 01/05/18 20:36 Review of Systems ROS Statement: Except As Marked, All Systems Reviewed And Found Negative Genitourinary Male: Negative for: Dysuria, Frequency, Incontinence, Hematuria, Scrotal Pain Musculoskeletal: Positive for: Back Pain (lower), Leg Pain (posterior knee pain) Physical Exam - Reviewed Nursing Documentation Reviewed: Yes Vital Signs Reviewed: Yes - Physical Exam Appears: Positive for: Well, Non-toxic, No Acute Distress Head Exam: Positive for: ATRAUMATIC, NORMAL INSPECTION, NORMOCEPHALIC Skin: Positive for: Normal Color, Warm, Dry Eye Exam: Positive for: Normal appearance Neck: Positive for: Painless ROM Cardiovascular/Chest: Positive for: Regular Rate, Rhythm, Chest Non Tender. Negative for: Edema Respiratory: Positive for: Normal Breath Sounds. Negative for: Decreased Breath Sounds, Accessory Muscle Use, Crackles, Rales, Rhonchi, Stridor, Wheezing , Respiratory Distress, Plerual Rub Pulses-Carotid (L): 2+ Pulses-Carotid (R): 2+ Pulses-Radial (L): 2+ Pulses-Radial (R): 2+ Back: Positive for: Vertebral Tenderness (paraspinal tenderness of the lower lumbar, reproducible), Other (Active and passive ROM unaffected). Negative for : L CVA Tenderness, R CVA Tenderness, Decreased ROM, Muscle Spasm Extremity: Positive for: Normal ROM (b/l knee active and passive ROM unaffected) , Capillary Refill. Negative for: Tenderness, Pedal Edema, Calf Tenderness, Deformity, Swelling Neurologic/Psych: Positive for: Alert, Oriented - ECG O2 Sat by Pulse Oximetry: 98 (RA) Pulse Ox Interpretation: Normal Medical Decision Making Medical Decision Making: Initial Impression: Musculoskeletal pain Initial Plan: --Flexeril 10mg PO --Toradol 60 mg IM --Tylenol 325mg tab 650 mg PO --Reevaluation Scribe Attestation: Documented by Yunier Rivera acting as a scribe for TULIO Walker MD Attestation: All medical record entries made by the Scribe were at my direction and personally dictated by me. I have reviewed the chart and agree that the record accurately reflects my personal performance of the history, physical exam, medical decision making, and the department course for this patient. I have also personally directed, reviewed, and agree with the discharge instructions and disposition. Disposition - Clinical Impression Clinical Impression: Back strain - Patient ED Disposition Is Patient to be Admitted: No Counseled Patient/Family Regarding: Diagnosis, Need For Followup, Rx Given - Disposition Disposition: Routine/Home Disposition Time: 23:01 Condition: GOOD Prescriptions: Cyclobenzaprine [Flexeril] 10 mg PO TID #27 tab Instructions: Muscle Strain (DC), Back Exercises, Low Back Pain in Adults Forms: [employer] (Persian)
[2018-01-06 11:44] VITALS: BP 118/78; PULSE 89; RESP 20; TEMP 98; O2SAT 100
== END 2018-01-05 23:21 | disposition home or self-care (01) ==
LOC: H.ER 20:28
DX: S39.012A Strain of muscle, fascia and tendon of lower back, initial encounter (principal); M25.561 Pain in right knee; M25.562 Pain in left knee; X50.9XXA Other and unspecified overexertion or strenuous movements or postures, initial encounter; Y92.89 Other specified places as the place of occurrence of the external cause; F31.9 Bipolar disorder, unspecified; F41.9 Anxiety disorder, unspecified
CPT/HCPCS: 96372; 99283; J1885

== ENCOUNTER 2018-01-08 05:48 | Emergency (ER) | payer MEDICAID ==
[2018-01-08 05:48] VITALS: BMI 29.7
[2018-01-08 06:04] VITALS: BP 132/86; RESP 16; TEMP 97.9; O2SAT 98
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
--- NOTE | 2018-01-08 07:20 | ED PDOC ---
- ECG O2 Sat by Pulse Oximetry: 98 Medical Decision Making Medical Decision Making: recd on endorsement 7a, pending workup and re-eval. On rounds comfortable, walking around ED, speech clear. 8am sleeping comfortably but arousable. speech clear. gait stable. headache improved. DC from ED. Disposition - Clinical Impression Clinical Impression: Headache - POA Present On Arrival: None - Disposition Disposition: Routine/Home Disposition Time: 08:30 Condition: STABLE Prescriptions: Ibuprofen [Motrin Tab] 600 mg PO Q6 PRN #15 tab PRN Reason: Pain, Moderate (4-7)
[2018-01-08 08:38] VITALS: PULSE 76
== END 2018-01-08 08:38 | disposition home or self-care (01) ==
LOC: H.ER 05:48
DX: R51 Headache (principal); F17.200 Nicotine dependence, unspecified, uncomplicated; Z86.59 Personal history of other mental and behavioral disorders
CPT/HCPCS: 87070; 87430; 87804; 96372; 99285; J1885

== ENCOUNTER 2018-01-10 03:49 | Emergency (ER) | payer MEDICAID ==
[2018-01-10 03:49] VITALS: BMI 29.7
[2018-01-10 04:02] VITALS: BP 131/85; PULSE 96; RESP 18; TEMP 98.1; O2SAT 100
[2018-01-10] MEDS ORDERED: Naproxen 500 MG TAB PO STA (04:40)
[2018-01-10] MEDS ORDERED: Naproxen 500 MG TAB PO ONE (04:57)
--- NOTE | 2018-01-10 05:42 | ED PDOC ---
HPI: General Adult Time Seen by Provider: 01/10/18 04:23 Chief Complaint (Nursing): ENT Problem Chief Complaint (Provider): Sore Throat History Per: Patient History/Exam Limitations: no limitations Onset/Duration Of Symptoms: Days (x2) Current Symptoms Are (Timing): Still Present Additional Complaint(s): Patient reports 2 days of sore throat. Otherwise: (-) cough, (-) fever (-) rash , (-) SOB, (-) chest pain, (-) N/V/D, (-) abdominal pain, (-) flank pain, (-) urinary symptoms, (-) recent travel, (-) sick contacts. Past Medical History Reviewed: Historical Data, Nursing Documentation, Vital Signs Vital Signs: Last Vital Signs Temp 98.1 F 01/10/18 03:57 Pulse 96 H 01/10/18 03:57 Resp 18 01/10/18 03:57 BP 131/85 01/10/18 03:57 Pulse Ox 100 01/10/18 03:57 - Medical History PMH: Anxiety, Arthritis, Bipolar Disorder, Bronchitis, Depression Denies: Diabetes, Hepatitis, HIV, HTN, Chronic Kidney Disease, Seizures, Sexually Transmitted Disease - Surgical History Surgical History: Hernia Repair (ventral) - Family History Family History: States: Diabetes - Immunization History Hx Tetanus Toxoid Vaccination: Yes - Home Medications Home Medications: Ambulatory Orders Medication Instructions Recorded Cephalexin [Keflex] 500 mg PO Q6 #28 capsule 06/23/16 Polyethylene Glycol 3350 [Miralax] 17 gm PO DAILY PRN #30 each 08/07/16 Ibuprofen [Motrin] 600 mg PO Q6 #20 tab 11/28/16 oxyCODONE/Acetaminophen [Percocet 1 ea PO Q6 PRN #5 tab 11/28/16 5/325 mg Tab] Acetaminophen [Tylenol Extra 500 mg PO Q6 #20 tablet 11/29/16 Strength] Naproxen [Naprosyn] 500 mg PO BID PRN #15 tablet 12/05/16 Ibuprofen [Motrin Tab] 600 mg PO Q6 PRN #12 tab 12/17/17 Cyclobenzaprine [Cyclobenzaprine 10 mg PO BID #15 tab 12/18/17 HCl] Acetaminophen [Tylenol 325mg tab] 2 tab PO Q4 PRN #15 tab 12/25/17 Cyclobenzaprine [Flexeril] 10 mg PO TID #27 tab 01/05/18 Ibuprofen [Motrin Tab] 600 mg PO Q6 PRN #15 tab 01/08/18 Albuterol HFA [Ventolin HFA 90 2 puff IH [id number] #1 puff 01/10/18 mcg/actuation (8 g)] - Allergies Allergies/Adverse Reactions: Allergies Allergy/AdvReac Type Severity Reaction Status Date / Time No Known Allergies Allergy Verified 01/05/18 20:36 Review of Systems ROS Statement: Except As Marked, All Systems Reviewed And Found Negative Constitutional: Negative for: Fever ENT: Positive for: Throat Pain Respiratory: Negative for: Cough Musculoskeletal: Positive for: Leg Pain (knee pain/joint pain) Skin: Negative for: Rash Physical Exam - Reviewed Nursing Documentation Reviewed: Yes Vital Signs Reviewed: Yes - Physical Exam Comments: GENERAL APPEARANCE: Patient is awake, alert, oriented x 3, in no acute distress. SKIN: Warm, dry; (-) cyanosis, (-) rash. (-) Decubitus Ulcer EYES: (-) conjunctival pallor, (-) scleral icterus, (-) conjunctival hemorrhage. ENMT: Mucous membranes _moist. TMs: (-) erythema. Airway patent: (-) stridor. Pharynx: (-) erythema, (-) exudate. NECK: (-) tenderness, (-) stiffness, (-) meningismus, (-) lymphadenopathy. CHEST AND RESPIRATORY: (-) accessory muscle use. Lungs: (-) rales, (-) rhonchi, (-) wheezes, (-) rub; breath sounds equal bilaterally. HEART AND CARDIOVASCULAR: (-) irregularity; (-) murmur, (-) gallop, (-) rub. ABDOMEN AND GI: Soft; (-) tenderness, (-) guarding; (-) organomegaly; (-) mass ; (-) CVA tenderness. EXTREMITIES: (-) deformity; (-) cellulitis, (-) lymphangitis; (-) subungual hemorrhage; (-) edema. NEURO AND PSYCH: Mental status as above; (-) focal findings. - ECG O2 Sat by Pulse Oximetry: 100 (RA) Pulse Ox Interpretation: Normal Medical Decision Making Medical Decision Makin Initial impression: viral illness Initial plan: * Naproxen 500mg PO * Re-eval 0500 Patient remains awake, alert, oriented x 3 and is laying in bed comfortably. On exam, neck is supple, lungs are clear, abdomen is soft and non tender, heart is at regular rate and rhythm. Repeat neuro shows no focal findings. Advised to follow up with primary care physician in 1-2 days without fail. Advised to take medication as prescribed. Return to the emergency room at any time for any new or worsening symptoms. Patient states he fully agrees with and understands discharge instructions. States that he/she agrees with the plan and disposition. Verbalized and repeated discharge instructions and plan. I have given the patient opportunity to ask any additional questions. Scribe Attestation: Documented by Windy Guerrero acting as a scribe for Taylor Osuna PA-C. Scribe Attestation: All medical record entries made by the Scribe were at my direction and personally dictated by me. I have reviewed the chart and agree that the record accurately reflects my personal performance of the history, physical exam, medical decision making, and the department course for this patient. I have also personally directed, reviewed, and agree with the discharge instructions and disposition. Disposition - Clinical Impression Clinical Impression: Sore throat, Cough - Disposition Referrals: [facility] [Outside] Disposition: Routine/Home Disposition Time: 05:00 Condition: STABLE Prescriptions: Albuterol HFA [Ventolin HFA 90 mcg/actuation (8 g)] 2 puff IH [id number] #1 puff Instructions: Cough in Adults, Viral Pharyngitis (DC) Forms: [employer] (Turkish)
== END 2018-01-10 05:10 | disposition home or self-care (01) ==
LOC: H.ER 03:49
DX: J02.9 Acute pharyngitis, unspecified (principal); F31.9 Bipolar disorder, unspecified; F41.9 Anxiety disorder, unspecified

== ENCOUNTER 2018-01-10 22:05 | Emergency (ER) | payer MEDICAID ==
[2018-01-10 22:06] VITALS: BMI 29.7
[2018-01-10 22:13] VITALS: PULSE 80; RESP 18; TEMP 98.7; O2SAT 99
--- NOTE | 2018-01-10 23:11 | ED PDOC ---
HPI: Psych/Substance Abuse Time Seen by Provider: 01/10/18 22:42 Chief Complaint (Nursing): ENT Problem Chief Complaint (Provider): substance abuse History Per: EMS Additional Complaint(s): 27 y/o male brought in by EMS for evaluation of substance abuse. Patient was kicked out of homeless assisted due to this. Patient well known to ED for same + bed-seeking behavior. Patient admits to smoking marijuana. Past Medical History Reviewed: Historical Data, Nursing Documentation, Vital Signs Vital Signs: Last Vital Signs Temp 98.7 F 01/10/18 22:08 Pulse 80 01/10/18 22:08 Resp 18 01/10/18 22:08 BP Pulse Ox 99 01/10/18 22:08 - Medical History PMH: Anxiety, Arthritis, Bipolar Disorder, Bronchitis, Depression Denies: Diabetes, Hepatitis, HIV, HTN, Chronic Kidney Disease, Seizures, Sexually Transmitted Disease - Surgical History Surgical History: Hernia Repair (ventral) - Family History Family History: States: Diabetes - Immunization History Hx Tetanus Toxoid Vaccination: Yes - Home Medications Home Medications: Ambulatory Orders Medication Instructions Recorded Cephalexin [Keflex] 500 mg PO Q6 #28 capsule 06/23/16 Polyethylene Glycol 3350 [Miralax] 17 gm PO DAILY PRN #30 each 08/07/16 Ibuprofen [Motrin] 600 mg PO Q6 #20 tab 11/28/16 oxyCODONE/Acetaminophen [Percocet 1 ea PO Q6 PRN #5 tab 11/28/16 5/325 mg Tab] Acetaminophen [Tylenol Extra 500 mg PO Q6 #20 tablet 11/29/16 Strength] Naproxen [Naprosyn] 500 mg PO BID PRN #15 tablet 12/05/16 Ibuprofen [Motrin Tab] 600 mg PO Q6 PRN #12 tab 12/17/17 Cyclobenzaprine [Cyclobenzaprine 10 mg PO BID #15 tab 12/18/17 HCl] Acetaminophen [Tylenol 325mg tab] 2 tab PO Q4 PRN #15 tab 12/25/17 Cyclobenzaprine [Flexeril] 10 mg PO TID #27 tab 01/05/18 Ibuprofen [Motrin Tab] 600 mg PO Q6 PRN #15 tab 01/08/18 Albuterol HFA [Ventolin HFA 90 2 puff IH [id number] #1 puff 01/10/18 mcg/actuation (8 g)] - Allergies Allergies/Adverse Reactions: Allergies Allergy/AdvReac Type Severity Reaction Status Date / Time No Known Allergies Allergy Verified 01/05/18 20:36 Review of Systems ROS Statement: Except As Marked, All Systems Reviewed And Found Negative Physical Exam - Reviewed Nursing Documentation Reviewed: Yes Vital Signs Reviewed: Yes - Physical Exam Appears: Positive for: Well, Non-toxic, No Acute Distress (sleeping) Skin: Positive for: Normal Color ENT: Positive for: Normal ENT Inspection Cardiovascular/Chest: Positive for: Regular Rate, Rhythm Respiratory: Positive for: Normal Breath Sounds Gastrointestinal/Abdominal: Positive for: Normal Exam Back: Positive for: Normal Inspection Extremity: Positive for: Normal ROM Neurologic/Psych: Positive for: Alert, Oriented - ECG O2 Sat by Pulse Oximetry: 99 - Progress ED Course And Treament: Patient awake, alert, oriented x3. Ambulating steady gait. stable for discharge Disposition - Clinical Impression Clinical Impression: Substance abuse, Malingering Counseled Patient/Family Regarding: Diagnosis, Need For Followup - Disposition Disposition: Routine/Home Disposition Time: 23:11 Condition: STABLE Instructions: Drug Abuse and Drug Addiction (DC) Forms: [employer] (Indian)
== END 2018-01-10 23:20 | disposition home or self-care (01) ==
LOC: H.ER 22:05
DX: F12.90 Cannabis use, unspecified, uncomplicated (principal); Z76.5 Malingerer [conscious simulation]; F31.9 Bipolar disorder, unspecified; F41.9 Anxiety disorder, unspecified

== ENCOUNTER 2018-01-11 23:37 | Emergency (ER) | payer MEDICAID ==
[2018-01-11 23:38] VITALS: BMI 29.7
[2018-01-11 23:43] VITALS: BP 124/76; RESP 16; TEMP 98.4
--- NOTE | 2018-01-12 00:53 | ED PDOC ---
HPI: CCC, URI, Sore Throat Time Seen by Provider: 01/11/18 23:50 Chief Complaint (Nursing): Cough, Cold, Congestion Chief Complaint (Provider): Cough, Cold, Congestion History Per: Patient History/Exam Limitations: no limitations Onset/Duration Of Symptoms: Days (x3) Current Symptoms Are (Timing): Still Present Associated Symptoms: Cough Additional Complaint(s): 27 year old male with a history of substance abuse and chronic back pain presents tot he ED complaining of chronic back pain and viral illness. He has had chronic back pain for years. Patient is well known to ED and was seen here on January 10 for a sore throat. He was diagnosed with viral pharyngitis and given albuterol. Patient was also seen in the ED yesterday for substance abuse, he often gets kicked out of custodial bec drugs and then comes to the ER. He reports same symptoms as viral illness. pt sleeping throughout ER stay in no distress. PMD: none provided Past Medical History Reviewed: Historical Data, Nursing Documentation, Vital Signs Vital Signs: Last Vital Signs Temp 98.4 F 01/11/18 23:39 Pulse 82 01/12/18 02:24 Resp 16 01/12/18 02:24 BP 124/76 01/11/18 23:39 Pulse Ox 100 01/12/18 02:24 - Medical History PMH: Anxiety, Arthritis, Bipolar Disorder, Bronchitis, Depression Denies: Diabetes, Hepatitis, HIV, HTN, Chronic Kidney Disease, Seizures, Sexually Transmitted Disease - Surgical History Surgical History: Hernia Repair (ventral) - Family History Family History: States: Diabetes - Social History Current smoker - smoking cessation education provided: No Alcohol: None Drugs: Denies - Immunization History Hx Tetanus Toxoid Vaccination: Yes - Home Medications Home Medications: Ambulatory Orders Medication Instructions Recorded Cephalexin [Keflex] 500 mg PO Q6 #28 capsule 06/23/16 Polyethylene Glycol 3350 [Miralax] 17 gm PO DAILY PRN #30 each 08/07/16 Ibuprofen [Motrin] 600 mg PO Q6 #20 tab 11/28/16 oxyCODONE/Acetaminophen [Percocet 1 ea PO Q6 PRN #5 tab 11/28/16 5/325 mg Tab] Acetaminophen [Tylenol Extra 500 mg PO Q6 #20 tablet 11/29/16 Strength] Naproxen [Naprosyn] 500 mg PO BID PRN #15 tablet 12/05/16 Ibuprofen [Motrin Tab] 600 mg PO Q6 PRN #12 tab 12/17/17 Cyclobenzaprine [Cyclobenzaprine 10 mg PO BID #15 tab 12/18/17 HCl] Acetaminophen [Tylenol 325mg tab] 2 tab PO Q4 PRN #15 tab 12/25/17 Cyclobenzaprine [Flexeril] 10 mg PO TID #27 tab 01/05/18 Ibuprofen [Motrin Tab] 600 mg PO Q6 PRN #15 tab 01/08/18 Albuterol HFA [Ventolin HFA 90 2 puff IH [id number] #1 puff 01/10/18 mcg/actuation (8 g)] - Allergies Allergies/Adverse Reactions: Allergies Allergy/AdvReac Type Severity Reaction Status Date / Time No Known Allergies Allergy Verified 01/05/18 20:36 Review of Systems ROS Statement: Except As Marked, All Systems Reviewed And Found Negative ENT: Positive for: Throat Pain Respiratory: Positive for: Cough Physical Exam - Reviewed Nursing Documentation Reviewed: Yes Vital Signs Reviewed: Yes - Physical Exam Appears: Positive for: No Acute Distress (somnolent) Head Exam: Positive for: ATRAUMATIC, NORMOCEPHALIC Skin: Positive for: Normal Color, Warm, Dry Eye Exam: Positive for: EOMI, Normal appearance, PERRL Neck: Positive for: Normal, Painless ROM, Supple Cardiovascular/Chest: Positive for: Regular Rate, Rhythm. Negative for: Murmur Respiratory: Positive for: Normal Breath Sounds. Negative for: Respiratory Distress Gastrointestinal/Abdominal: Positive for: Normal Exam, Soft Extremity: Positive for: Normal ROM. Negative for: Deformity Neurologic/Psych: Positive for: Alert, Oriented. Negative for: Motor/Sensory Deficits - ECG O2 Sat by Pulse Oximetry: 98 (RA) Pulse Ox Interpretation: Normal Medical Decision Making Medical Decision Making: Time: 00:10 viral illness --Upon evaluation, patient was sleeping and asked for the lights to be turned off. Time; 02:05 --Patient has been sleeping comfortably throughout ER visit. He requires no further treatment at the ED at this time. Will be discharged home. Diagnosis is viral illness. Advised to follow up with clinic. Scribe Attestation: Documented by Radha Rosario, acting as a scribe for Katlyn Arevalo MD Provider Scribe Attestation: All medical record entries made by the Scribe were at my direction and personally dictated by me. I have reviewed the chart and agree that the record accurately reflects my personal performance of the history, physical exam, medical decision making, and the department course for this patient. I have also personally directed, reviewed, and agree with the discharge instructions and disposition. Disposition - Clinical Impression Clinical Impression: Viral illness - Patient ED Disposition Is Patient to be Admitted: No Counseled Patient/Family Regarding: Studies Performed, Diagnosis, Need For Followup - Disposition Referrals: [facility] [Outside] [facility] [Outside] Disposition: Routine/Home Disposition Time: 01:40 Condition: IMPROVED Additional Instructions: follow up in the clinic return to the ED with any worsening or concerning symptoms Forms: [employer] (Portuguese)
[2018-01-12 02:25] VITALS: PULSE 82
[2018-01-12 04:14] VITALS: O2SAT 98
== END 2018-01-12 02:30 | disposition home or self-care (01) ==
LOC: H.ER 23:37
DX: B34.9 Viral infection, unspecified (principal); F31.9 Bipolar disorder, unspecified; F41.9 Anxiety disorder, unspecified

== ENCOUNTER 2018-01-12 05:14 | Emergency (ER) | payer MEDICAID ==
[2018-01-12 05:15] VITALS: BMI 29.7
[2018-01-12 05:22] VITALS: PULSE 91; RESP 16; TEMP 98; O2SAT 98
--- NOTE | 2018-01-12 05:28 | ED PDOC ---
HPI: General Adult Time Seen by Provider: 01/12/18 05:17 Chief Complaint (Nursing): Back Pain Chief Complaint (Provider): Medical Clearance History Per: Patient History/Exam Limitations: no limitations Onset/Duration Of Symptoms: Mins (prior to arrival) Current Symptoms Are (Timing): Still Present Additional Complaint(s): 27 year old male just discharged from ED presents now under arrest. Patient was discharged less than an hour ago and upon discharge he broke into a car adn was arrested. He is here for medical and psychiatric clearance to be incarcerated. Past Medical History Reviewed: Historical Data, Nursing Documentation, Vital Signs Vital Signs: Last Vital Signs Temp 98 F 01/12/18 05:20 Pulse 91 H 01/12/18 05:20 Resp 16 01/12/18 05:20 BP Pulse Ox 98 01/12/18 05:30 - Medical History PMH: Anxiety, Arthritis, Bipolar Disorder, Bronchitis, Depression Denies: Diabetes, Hepatitis, HIV, HTN, Chronic Kidney Disease, Seizures, Sexually Transmitted Disease - Surgical History Surgical History: Hernia Repair (ventral) - Family History Family History: States: Diabetes - Immunization History Hx Tetanus Toxoid Vaccination: Yes - Home Medications Home Medications: Ambulatory Orders Medication Instructions Recorded Cephalexin [Keflex] 500 mg PO Q6 #28 capsule 06/23/16 Polyethylene Glycol 3350 [Miralax] 17 gm PO DAILY PRN #30 each 08/07/16 Ibuprofen [Motrin] 600 mg PO Q6 #20 tab 11/28/16 oxyCODONE/Acetaminophen [Percocet 1 ea PO Q6 PRN #5 tab 11/28/16 5/325 mg Tab] Acetaminophen [Tylenol Extra 500 mg PO Q6 #20 tablet 11/29/16 Strength] Naproxen [Naprosyn] 500 mg PO BID PRN #15 tablet 12/05/16 Ibuprofen [Motrin Tab] 600 mg PO Q6 PRN #12 tab 12/17/17 Cyclobenzaprine [Cyclobenzaprine 10 mg PO BID #15 tab 12/18/17 HCl] Acetaminophen [Tylenol 325mg tab] 2 tab PO Q4 PRN #15 tab 12/25/17 Cyclobenzaprine [Flexeril] 10 mg PO TID #27 tab 01/05/18 Ibuprofen [Motrin Tab] 600 mg PO Q6 PRN #15 tab 01/08/18 Albuterol HFA [Ventolin HFA 90 2 puff IH [id number] #1 puff 01/10/18 mcg/actuation (8 g)] - Allergies Allergies/Adverse Reactions: Allergies Allergy/AdvReac Type Severity Reaction Status Date / Time No Known Allergies Allergy Verified 01/12/18 05:20 Review of Systems ROS Statement: Except As Marked, All Systems Reviewed And Found Negative Physical Exam - Reviewed Vital Signs Reviewed: Yes - Physical Exam Appears: Positive for: Non-toxic, No Acute Distress Head Exam: Positive for: ATRAUMATIC, NORMOCEPHALIC Skin: Positive for: Normal Color, Warm, DRY Eye Exam: Positive for: EOMI, Normal appearance, PERRL Neck: Positive for: Normal, Painless ROM Cardiovascular/Chest: Positive for: Regular Rate, Rhythm Respiratory: Positive for: CNT, Normal Breath Sounds Gastrointestinal/Abdominal: Positive for: Normal Exam, Soft Extremity: Positive for: Normal ROM Neurologic/Psych: Positive for: Alert, Oriented. Negative for: Motor/Sensory Deficits - ECG O2 Sat by Pulse Oximetry: 98 (RA) Pulse Ox Interpretation: Normal Medical Decision Making Medical Decision Making: Time: 05:25 Patient is medically cleared. --He was evaluated by crisis and is cleared for discharge by Dr. Haas. ekg nsr pt resquest something for constpation and pain gave jonnathan and motrin Scribe Attestation: Documented by Radha Rosario, acting as a scribe for Katlyn Arevalo MD Provider Scribe Attestation: All medical record entries made by the Scribe were at my direction and personally dictated by me. I have reviewed the chart and agree that the record accurately reflects my personal performance of the history, physical exam, medical decision making, and the department course for this patient. I have also personally directed, reviewed, and agree with the discharge instructions and disposition. Disposition - Clinical Impression Clinical Impression: Substance abuse - Patient ED Disposition Is Patient to be Admitted: No Counseled Patient/Family Regarding: Studies Performed, Diagnosis, Need For Followup - Disposition Referrals: [facility] [Outside] [facility] [Outside] Disposition: Routine/Home Disposition Time: 06:00 Condition: IMPROVED Additional Instructions: patient medically and psychiatrically cleared for police custody follow up with your primary doctor return with any worsening or concerning symptoms Instructions: Drug Abuse and Drug Addiction (DC) Forms: [employer] (Croatian)
--- NOTE | 2018-01-14 18:27 | CARD ---
APPROVED REPORT EKG Measurement Heart [id number] <Conclusion> Normal sinus rhythm Normal ECG
== END 2018-01-12 05:40 | disposition home or self-care (01) ==
LOC: H.ER 05:14
DX: F19.20 Other psychoactive substance dependence, uncomplicated (principal); Z86.59 Personal history of other mental and behavioral disorders

== ENCOUNTER 2018-01-21 20:47 | Emergency (ER) | payer MEDICAID ==
[2018-01-21 20:47] VITALS: BMI 29.7
[2018-01-21 21:04] VITALS: BP 112/75; PULSE 125; RESP 20; TEMP 98.5; O2SAT 96
[2018-01-21] MEDS ORDERED: Sodium Chloride 0.9% 1,000 ML IV SCH (21:30)
--- NOTE | 2018-01-21 21:46 | ED PDOC ---
Syncope/Near Syncope/Dizziness Time Seen by Provider: 01/21/18 21:06 Chief Complaint (Nursing): Dizziness/Lightheaded History Per: Patient Onset/Duration Of Symptoms: Days (1) Additional Complaint(s): 27 yo M reports dizziness with no vertigo since earlier today. [facility], he was there since January 12, states that he was being fed "bad food" and developed constipation while he was in [facility] and was treated with stool softners. Reports (-) worsening of symptoms with movement of head. Otherwise: (-) lightheadedness, (-) trauma, (-) headache, (-) tinnitus, (-) hearing loss, (-) chest pain, (-) dyspnea, (-) fever, (-) vomiting, (-) diarrhea , (-) syncope, (-) GI bleeding. Patient states that he was given a sandwich at triage which he tolerated. Past Medical History Vital Signs: Last Vital Signs Temp 98.5 F 01/21/18 21:01 Pulse 125 H 01/21/18 21:01 Resp 20 01/21/18 21:01 BP 112/75 01/21/18 21:01 Pulse Ox 96 01/21/18 21:01 - Medical History PMH: Anxiety, Arthritis, Bipolar Disorder, Bronchitis, Depression Denies: Diabetes, Hepatitis, HIV, HTN, Chronic Kidney Disease, Seizures, Sexually Transmitted Disease - Surgical History Surgical History: Hernia Repair (ventral) - Family History Family History: States: Diabetes - Immunization History Hx Tetanus Toxoid Vaccination: Yes - Home Medications Home Medications: Ambulatory Orders Medication Instructions Recorded Cephalexin [Keflex] 500 mg PO Q6 #28 capsule 06/23/16 Polyethylene Glycol 3350 [Miralax] 17 gm PO DAILY PRN #30 each 08/07/16 Ibuprofen [Motrin] 600 mg PO Q6 #20 tab 11/28/16 oxyCODONE/Acetaminophen [Percocet 1 ea PO Q6 PRN #5 tab 11/28/16 5/325 mg Tab] Acetaminophen [Tylenol Extra 500 mg PO Q6 #20 tablet 11/29/16 Strength] Naproxen [Naprosyn] 500 mg PO BID PRN #15 tablet 12/05/16 Ibuprofen [Motrin Tab] 600 mg PO Q6 PRN #12 tab 12/17/17 Cyclobenzaprine [Cyclobenzaprine 10 mg PO BID #15 tab 12/18/17 HCl] Acetaminophen [Tylenol 325mg tab] 2 tab PO Q4 PRN #15 tab 12/25/17 Cyclobenzaprine [Flexeril] 10 mg PO TID #27 tab 01/05/18 Ibuprofen [Motrin Tab] 600 mg PO Q6 PRN #15 tab 01/08/18 Albuterol HFA [Ventolin HFA 90 2 puff IH [id number] #1 puff 01/10/18 mcg/actuation (8 g)] - Allergies Allergies/Adverse Reactions: Allergies Allergy/AdvReac Type Severity Reaction Status Date / Time No Known Allergies Allergy Verified 01/12/18 05:20 Review of Systems Constitutional: Positive for: Malaise. Negative for: Fever, Weakness Cardiovascular: Negative for: Chest Pain, Palpitations, Edema Respiratory: Negative for: Cough, Shortness of Breath Gastrointestinal: Negative for: Nausea, Vomiting, Abdominal Pain, Diarrhea Genitourinary Male: Negative for: Dysuria, Frequency Musculoskeletal: Negative for: Neck Pain, Back Pain Skin: Negative for: Rash, Lesions, Jaundice Neurological: Positive for: Dizziness. Negative for: Weakness, Numbness Physical Exam - Physical Exam Comments: GENERALIZED APPEARANCE:Patient is awake, alert, oriented x3 in no acute distress. SKIN: Warm, dry; (-) cyanosis. HEAD: (-) scalp swelling or tenderness. EYES: (-) conjunctival pallor. ENMT: Mucous membranes dry. NECK: (-) tenderness, (-) stiffness, (-) lymphadenopathy. CHEST AND RESPIRATORY: (-) rales, (-) rhonchi, (-) wheezes; breath sounds equal bilaterally. HEART AND CARDIOVASCULAR: (-) irregularity; (-) murmur, (-) gallop. ABDOMEN AND GI: Soft; (-) distention, (-) tenderness, (-) rebound, (-) guarding , (-) palpable masses, (-) flank tenderness. EXTREMITIES: (-) deformity; (-) edema. Distal pulses: present. NEURO AND PSYCH: Mental status as above. poultry raiser: (-) nystagmus; Pupils EOMI, (-) facial asymmetry; (-) dysarthria; tongue and uvula midline. Strength symmetric. Gait: normal. - ECG O2 Sat by Pulse Oximetry: 96 Medical Decision Making Medical Decision Making: Plan : - Labs - IV - IV NS bolus - FS - EKG While in the ER, the patient started pacing and asking for juice. He now wishes to leave the ER and seek treatment elsewhere. Patient wishes to leave the ER AMA. Patient refuses further care, evaluation or treatment in the ER. Patient informed of the reasons for the following and planned treatment, which patient understands, however still refuses. Patient informed of the risk and benefits of treatment. Informed that the risk could include worsening of current conditions, undiagnosed conditions, disability or even . Patient understands the following risk and the benefits of treatment. Patient has the capacity to make decisions and still refuses treatment by RN, PA and ER MD. Patient encouraged to return to the ER at any time and to follow up with pmd. Disposition - Clinical Impression Clinical Impression: Dizziness - Patient ED Disposition Is Patient to be Admitted: No - Disposition Disposition: Against Medical Advice Disposition Time: 21:45 Condition: UNKNOWN Forms: [employer] (British) - PA / OFFSET PRESS OPERATOR / Resident Statement /DO has reviewed & agrees with the documentation as recorded.
== END 2018-01-21 21:40 | disposition left against medical advice (07) ==
LOC: H.ER 20:47
DX: R42 Dizziness and giddiness (principal); F31.9 Bipolar disorder, unspecified; F41.9 Anxiety disorder, unspecified

== ENCOUNTER 2018-01-22 23:37 | Emergency (ER) | payer MEDICAID ==
[2018-01-22 23:37] VITALS: BMI 29.7
[2018-01-22 23:42] VITALS: BP 125/86; PULSE 94; RESP 16; TEMP 97; O2SAT 99
[2018-01-23] MEDS ORDERED: Naloxone 0.4 mg/ml Inj (Adult) IVP STA (01:10)
[2018-01-23] MEDS ORDERED: Sodium Chloride 0.9% 1,000 ML IV SCH (01:15)
[2018-01-23 01:42] LABS: BASO # 0.1 K/uL (0.0-0.2); BASO % 0.8 % (0.0-2.0); EOS # 0.3 K/uL (0.0-0.7); EOS % 2.4 % (0.0-4.0); HEMOGLOBIN 12.2 g/dL (12.0-18.0); LYMPH # 1.6 K/uL (1.0-4.3); LYMPH % 14.7 % (20.0-40.0); MEAN CELL VOLUME 91.9 fl (80.0-94.0); MEAN CORPUSCULAR HEMOGLOBIN 31.1 pg (27.0-31.0); MEAN CORPUSCULAR HGB CONC 33.8 g/dL (33.0-37.0); MEAN PLATELET VOLUME 7.5 fl (7.2-11.7); MONO # 1.1 K/uL (0.0-0.8); MONO % 9.8 % (0.0-10.0); NEUT # 8.1 K/uL (1.8-7.0); NEUT % 72.3 % (50.0-75.0); RBC 3.92 Mil/uL (4.40-5.90); RED CELL DISTRIBUTION WIDTH 14.1 % (11.5-14.5); WHITE BLOOD COUNT 11.2 K/uL (4.8-10.8)
[2018-01-23] MEDS ORDERED: Sodium Chloride 0.9% 1,000 ML IV ONE (02:39)
[2018-01-23] MEDS ORDERED: Sodium Chloride 0.9% 1,000 ML IV STA (02:50)
[2018-01-23 03:16] LABS: URINE BILIRUBIN NEGATIVE (NEGATIVE); URINE BLOOD MODERATE (NEGATIVE); URINE CLARITY SLIGHTY-CLOUDY (Clear); URINE COLOR YELLOW (YELLOW); URINE GLUCOSE (UA) NEG (Normal); URINE LEUKOCYTE ESTERASE NEG Leu/uL (Negative); URINE PROTEIN NEGATIVE (NEGATIVE); URINE UROBILINOGEN 0.2-1.0 mg/dL (0.2-1.0)
[2018-01-23 03:41] LABS: BARBITURATES, UR POSITIVE (NEGATIVE); BENZODIAZEPINES, UR NEGATIVE (NEGATIVE); PHENCYCLIDINE, UR POSITIVE (NEGATIVE)
[2018-01-23 03:42] LABS: OPIATES, UR NEGATIVE (NEGATIVE)
[2018-01-23 04:19] LABS: ALB/GLOB RATIO 1.2 (1.0-2.1); ALBUMIN 3.7 g/dL (3.5-5.0); ALT/SGPT 67 U/L (21-72); AST/SGOT 90 U/L (17-59); BLOOD UREA NITROGEN 21 mg/dl (9-20); CALCIUM 8.7 mg/dL (8.4-10.2); GFR AFRICAN-AMERICAN > 60; GFR NON-AFRICAN AMERICAN > 60
--- NOTE | 2018-01-23 04:47 | ED PDOC ---
HPI: General Adult Time Seen by Provider: 01/23/18 00:10 Chief Complaint (Nursing): Abdominal Pain Chief Complaint (Provider): Weakness History Per: EMS History/Exam Limitations: other (patient not alert) Additional Complaint(s): 27yo male, brought to ER by EMS for evaluation of weakness. Patient is not alert enough to provide further history. Past Medical History Reviewed: Historical Data, Nursing Documentation, Vital Signs Vital Signs: Last Vital Signs Temp 97.0 F L 01/22/18 23:38 Pulse 94 H 01/22/18 23:38 Resp 16 01/22/18 23:38 BP 125/86 01/22/18 23:38 Pulse Ox 99 01/23/18 04:51 - Medical History PMH: Anxiety, Arthritis, Bipolar Disorder, Bronchitis, Depression Denies: Diabetes, Hepatitis, HIV, HTN, Chronic Kidney Disease, Seizures, Sexually Transmitted Disease - Surgical History Surgical History: Hernia Repair (ventral) - Family History Family History: States: Diabetes - Immunization History Hx Tetanus Toxoid Vaccination: Yes - Home Medications Home Medications: Ambulatory Orders Medication Instructions Recorded Cephalexin [Keflex] 500 mg PO Q6 #28 capsule 06/23/16 Polyethylene Glycol 3350 [Miralax] 17 gm PO DAILY PRN #30 each 08/07/16 Ibuprofen [Motrin] 600 mg PO Q6 #20 tab 11/28/16 oxyCODONE/Acetaminophen [Percocet 1 ea PO Q6 PRN #5 tab 11/28/16 5/325 mg Tab] Acetaminophen [Tylenol Extra 500 mg PO Q6 #20 tablet 11/29/16 Strength] Naproxen [Naprosyn] 500 mg PO BID PRN #15 tablet 12/05/16 Ibuprofen [Motrin Tab] 600 mg PO Q6 PRN #12 tab 12/17/17 Cyclobenzaprine [Cyclobenzaprine 10 mg PO BID #15 tab 12/18/17 HCl] Acetaminophen [Tylenol 325mg tab] 2 tab PO Q4 PRN #15 tab 12/25/17 Cyclobenzaprine [Flexeril] 10 mg PO TID #27 tab 01/05/18 Ibuprofen [Motrin Tab] 600 mg PO Q6 PRN #15 tab 01/08/18 Albuterol HFA [Ventolin HFA 90 2 puff IH [id number] #1 puff 01/10/18 mcg/actuation (8 g)] - Allergies Allergies/Adverse Reactions: Allergies Allergy/AdvReac Type Severity Reaction Status Date / Time No Known Allergies Allergy Verified 01/12/18 05:20 Review of Systems Review Of Systems: ROS cannot be obtained secondary to pt's inabilty to answer questions. (patient is not alert enough to provide history) Physical Exam - Reviewed Nursing Documentation Reviewed: Yes Vital Signs Reviewed: Yes - Physical Exam Comments: GENERAL APPEARANCE: patient sleeping heavily SKIN: Warm, dry; (-) cyanosis. EYES: (-) conjunctival pallor, (-) scleral icterus. ENMT: Mucous membranes moist. NECK: (-) tenderness, (-) stiffness, (-) lymphadenopathy. CHEST AND RESPIRATORY: (-) rales, (-) rhonchi, (-) wheezes; breath sounds equal bilaterally. HEART AND CARDIOVASCULAR: (-) irregularity; (-) murmur, (-) gallop. ABDOMEN AND GI: (-) distention. Bowel sounds active. (-) guarding, (-) rebound , (-) palpable masses. EXTREMITIES: (-) deformity, (-) edema, (+) distal pulses. NEURO AND PSYCH: Patient responding to painful stimuli; arousable but falls asleep easily - Laboratory Results Result Diagrams: 01/23/18 01:35 01/23/18 04:01 - ECG O2 Sat by Pulse Oximetry: 99 (RA) Pulse Ox Interpretation: Normal Medical Decision Making Medical Decision Making: Impression: weakness Plan: -- Labs -- IV Fluids -- Narcan 0.4mg IVP Time: 0300 Re-evaluation: Patient is more alert, but still drowsy. Upon further questioning patient states he feels weak but deneis any fever, chills, chest pain, abdominal pain, nausea, vomiting or headache. CBC, UA and drug screen reviewed; CMP still pending. Time: 0400 Upon re-evaluation, patient is awake, alert an oriented x 3 and able to ambulate in ER with steady gait. Patient is requesting to leave ER and is electing to sign out AMA as he no longer wishes to complete his treatment in the ER. CMP results still pending. Patient refuses further care, evaluation or treatment in the ER. Patient informed of the reasons for the following and planned treatment, which patient understands, however still refuses. Patient informed of the risk and benefits of treatment. Informed that the risk could include worsening of current conditions, undiagnosed conditions, disability or even . Patient understands the following risk and the benefits of treatment. Patient has the capacity to make decisions and still refuses treatment by RN, PA and ER MD. Patient encouraged to return to the ER at any time and to follow up with pmd. Scribe Attestation: Documented by Bia Menezes acting as a scribe for MALENA Hdz. Provider Attestation: All medical record entries made by the Scribe were at my direction and personally dictated by me. I have reviewed the chart and agree that the record accurately reflects my personal performance of the history, physical exam, medical decision making, and the department course for this patient. I have also personally directed, reviewed, and agree with the discharge instructions and disposition. Disposition - Clinical Impression Clinical Impression: Polysubstance abuse - Patient ED Disposition Is Patient to be Admitted: No Counseled Patient/Family Regarding: Studies Performed, Need For Followup - Disposition Disposition: Against Medical Advice Disposition Time: 04:50 Condition: UNKNOWN Forms: [email or web address] (Azeri) - PA / ASSISTANT SCIENTIST / Resident Statement / has reviewed & agrees with the documentation as recorded.
== END 2018-01-23 03:59 | disposition left against medical advice (07) ==
LOC: H.ER 23:37
DX: F19.10 Other psychoactive substance abuse, uncomplicated (principal); R53.1 Weakness; F31.9 Bipolar disorder, unspecified; F41.9 Anxiety disorder, unspecified
CPT/HCPCS: 80053; 80324; 80345; 80346; 80349; 80353; 80358; 80361; 81003; 82948; 83992; 85025; 96360; 99285; J7040

== ENCOUNTER 2018-01-23 07:22 | Emergency (ER) | payer MEDICAID ==
[2018-01-23 07:44] VITALS: BMI 30.7
[2018-01-23 07:47] VITALS: BP 122/79; PULSE 89; RESP 20; TEMP 97.8; O2SAT 99
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
== END 2018-01-23 08:46 | disposition home or self-care (01) ==
LOC: H.ER 07:22
DX: G89.29 Other chronic pain (principal); F31.9 Bipolar disorder, unspecified; F41.9 Anxiety disorder, unspecified; F17.210 Nicotine dependence, cigarettes, uncomplicated

== ENCOUNTER 2018-01-23 16:03 | Emergency (ER) | payer MEDICAID ==
[2018-01-23 16:03] VITALS: BMI 30.7
[2018-01-23 16:09] VITALS: BP 128/76; PULSE 95; RESP 16; TEMP 98.7; O2SAT 98
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
== END 2018-01-23 17:13 | disposition home or self-care (01) ==
LOC: H.ER 16:03
DX: G89.4 Chronic pain syndrome (principal)

== ENCOUNTER 2018-01-24 03:13 | Emergency (ER) | payer MEDICAID ==
[2018-01-24 03:14] VITALS: BMI 30.7
[2018-01-24 03:27] VITALS: BP 127/90; PULSE 91; RESP 16; TEMP 97.9; O2SAT 98
--- NOTE | 2018-01-24 04:02 | ED PDOC ---
HPI: Back Time Seen by Provider: 01/24/18 03:24 Chief Complaint (Nursing): Back Pain Chief Complaint (Provider): Back pain and medication refill History Per: Patient History/Exam Limitations: no limitations Onset/Duration Of Symptoms: Days (2) Current Symptoms Are (Timing): Still Present Quality Of Discomfort: Unable To Describe Past Medical History Vital Signs: Last Vital Signs Temp 97.9 F 01/24/18 03:25 Pulse 91 H 01/24/18 03:25 Resp 16 01/24/18 03:25 BP 127/90 01/24/18 03:25 Pulse Ox 98 01/24/18 03:25 - Medical History PMH: Anxiety, Arthritis, Back Problems, Bipolar Disorder, Bronchitis, Depression Denies: Diabetes, Hepatitis, HIV, HTN, Chronic Kidney Disease, Seizures, Sexually Transmitted Disease - Surgical History Surgical History: Hernia Repair (ventral) - Family History Family History: States: Unknown Family Hx - Immunization History Hx Tetanus Toxoid Vaccination: Yes - Home Medications Home Medications: Ambulatory Orders Medication Instructions Recorded Cephalexin [Keflex] 500 mg PO Q6 #28 capsule 06/23/16 Polyethylene Glycol 3350 [Miralax] 17 gm PO DAILY PRN #30 each 08/07/16 Ibuprofen [Motrin] 600 mg PO Q6 #20 tab 11/28/16 oxyCODONE/Acetaminophen [Percocet 1 ea PO Q6 PRN #5 tab 11/28/16 5/325 mg Tab] Acetaminophen [Tylenol Extra 500 mg PO Q6 #20 tablet 11/29/16 Strength] Naproxen [Naprosyn] 500 mg PO BID PRN #15 tablet 12/05/16 Ibuprofen [Motrin Tab] 600 mg PO Q6 PRN #12 tab 12/17/17 Cyclobenzaprine [Cyclobenzaprine 10 mg PO BID #15 tab 12/18/17 HCl] Acetaminophen [Tylenol 325mg tab] 2 tab PO Q4 PRN #15 tab 12/25/17 Cyclobenzaprine [Flexeril] 10 mg PO TID #27 tab 01/05/18 Ibuprofen [Motrin Tab] 600 mg PO Q6 PRN #15 tab 01/08/18 Albuterol HFA [Ventolin HFA 90 2 puff IH [id number] #1 puff 01/10/18 mcg/actuation (8 g)] Cyclobenzaprine [Cyclobenzaprine 10 mg PO TID PRN #15 tab 01/23/18 HCl] Ibuprofen [Motrin] 600 mg PO Q6H PRN #20 tab 01/23/18 Albuterol HFA [Ventolin HFA 90 2 puff IH [id number] #2 units 01/24/18 mcg/actuation (8 g)] Ibuprofen [Motrin Tab] 1 tab PO QID #40 tab 01/24/18 - Allergies Allergies/Adverse Reactions: Allergies Allergy/AdvReac Type Severity Reaction Status Date / Time No Known Allergies Allergy Verified 01/23/18 07:58 - ECG O2 Sat by Pulse Oximetry: 98 Disposition - Clinical Impression Clinical Impression: Chronic back pain, Low back pain - Patient ED Disposition Is Patient to be Admitted: No Doctor Will See Patient In The: Office Counseled Patient/Family Regarding: Diagnosis, Need For Followup - Disposition Referrals: [facility] [Outside] Disposition: Routine/Home Disposition Time: 04:03 Condition: GOOD Prescriptions: Albuterol HFA [Ventolin HFA 90 mcg/actuation (8 g)] 2 puff IH [id number] #2 units Ibuprofen [Motrin Tab] 1 tab PO QID #40 tab Instructions: Low Back Pain in Adults Forms: [facility] (Liberian)
== END 2018-01-24 04:30 | disposition home or self-care (01) ==
LOC: H.ER 03:13
DX: Z76.0 Encounter for issue of repeat prescription (principal); G89.29 Other chronic pain; F31.9 Bipolar disorder, unspecified; F41.9 Anxiety disorder, unspecified
CPT/HCPCS: 96372; 99283; J1885

== ENCOUNTER 2018-01-24 23:57 | Emergency (ER) | payer MEDICAID ==
[2018-01-24 23:57] VITALS: BMI 30.7
[2018-01-25 00:10] VITALS: BP 125/81; PULSE 97; RESP 18; TEMP 98; O2SAT 98
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
--- NOTE | 2018-01-25 07:40 | CARD ---
APPROVED REPORT EKG Measurement Heart [id number] <Conclusion> Normal sinus rhythm Left axis deviation Abnormal ECG
== END 2018-01-25 06:18 | disposition home or self-care (01) ==
LOC: H.ER 23:57
DX: R42 Dizziness and giddiness (principal); F31.9 Bipolar disorder, unspecified; F41.9 Anxiety disorder, unspecified

== ENCOUNTER 2018-01-25 20:15 | Emergency (ER) | payer MEDICAID ==
[2018-01-25 20:15] VITALS: BMI 30.7
[2018-01-25 20:32] VITALS: BP 131/87; PULSE 98; RESP 18; TEMP 98.4; O2SAT 99
[2018-01-25] MEDS ORDERED: Naproxen 500 MG TAB PO ONE ×2 (21:50→22:06)
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
== END 2018-01-25 23:43 | disposition home or self-care (01) ==
LOC: H.ER 20:15
DX: M54.9 Dorsalgia, unspecified (principal); F31.9 Bipolar disorder, unspecified; F41.9 Anxiety disorder, unspecified; G89.29 Other chronic pain

== ENCOUNTER 2018-01-26 01:51 | Emergency (ER) | payer MEDICAID ==
[2018-01-26 01:51] VITALS: BMI 30.7
[2018-01-26 02:13] VITALS: BP 150/92; PULSE 76; RESP 16; TEMP 98; O2SAT 100
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
== END 2018-01-26 03:01 | disposition home or self-care (01) ==
LOC: H.ER 01:51
DX: M54.9 Dorsalgia, unspecified (principal); G89.29 Other chronic pain; F31.9 Bipolar disorder, unspecified; F41.9 Anxiety disorder, unspecified
CPT/HCPCS: 96372; 99283; J1885

== ENCOUNTER 2018-01-26 21:28 | Emergency (ER) | payer MEDICAID ==
[2018-01-26 21:28] VITALS: BMI 30.7
[2018-01-26 21:36] VITALS: O2SAT 100
--- NOTE | 2018-01-26 22:33 | ED PDOC ---
HPI: Chest Pain Time Seen by Provider: 01/26/18 22:11 Chief Complaint (Nursing): Chest Pain History Per: Patient Additional Complaint(s): Pt. states for the past 2 hours he's had L sided chest pain x 2 hours. States symptoms began while he was smoking a cigarette. Denies trauma, SOB, palpitations, cough, fever, hemoptysis, cocaine use. Past Medical History Vital Signs: Last Vital Signs Temp 98.0 F 01/26/18 21:34 Pulse 95 H 01/26/18 23:05 Resp 16 01/26/18 21:34 BP 134/83 01/26/18 21:34 Pulse Ox 100 01/26/18 23:05 - Medical History PMH: Anxiety, Arthritis, Back Problems, Bipolar Disorder, Bronchitis, Depression Denies: Diabetes, Hepatitis, HIV, HTN, Chronic Kidney Disease, Seizures, Sexually Transmitted Disease - Surgical History Surgical History: Hernia Repair (ventral) - Family History Family History: Denies: [place], CAD - Social History Current smoker - smoking cessation education provided: Yes - Immunization History Hx Tetanus Toxoid Vaccination: Yes - Home Medications Home Medications: Ambulatory Orders Medication Instructions Recorded Cephalexin [Keflex] 500 mg PO Q6 #28 capsule 06/23/16 Polyethylene Glycol 3350 [Miralax] 17 gm PO DAILY PRN #30 each 08/07/16 Ibuprofen [Motrin] 600 mg PO Q6 #20 tab 11/28/16 oxyCODONE/Acetaminophen [Percocet 1 ea PO Q6 PRN #5 tab 11/28/16 5/325 mg Tab] Acetaminophen [Tylenol Extra 500 mg PO Q6 #20 tablet 11/29/16 Strength] Naproxen [Naprosyn] 500 mg PO BID PRN #15 tablet 12/05/16 Ibuprofen [Motrin Tab] 600 mg PO Q6 PRN #12 tab 12/17/17 Cyclobenzaprine [Cyclobenzaprine 10 mg PO BID #15 tab 12/18/17 HCl] Acetaminophen [Tylenol 325mg tab] 2 tab PO Q4 PRN #15 tab 12/25/17 Cyclobenzaprine [Flexeril] 10 mg PO TID #27 tab 01/05/18 Ibuprofen [Motrin Tab] 600 mg PO Q6 PRN #15 tab 01/08/18 Albuterol HFA [Ventolin HFA 90 2 puff IH [id number] #1 puff 01/10/18 mcg/actuation (8 g)] Cyclobenzaprine [Cyclobenzaprine 10 mg PO TID PRN #15 tab 01/23/18 HCl] Ibuprofen [Motrin] 600 mg PO Q6H PRN #20 tab 01/23/18 Albuterol HFA [Ventolin HFA 90 2 puff IH [id number] #2 units 01/24/18 mcg/actuation (8 g)] Ibuprofen [Motrin Tab] 1 tab PO QID #40 tab 01/24/18 - Allergies Allergies/Adverse Reactions: Allergies Allergy/AdvReac Type Severity Reaction Status Date / Time No Known Allergies Allergy Verified 01/26/18 21:34 MITCHELL Risk Score for UA/NSTEMI - MITCHELL Risk Score Age > 64: NO 3 or more CAD Risk Factors: NO Known CAD (Stenosis greater than 50%): NO Aspirin use in past 7 days: NO Severe Angina: NO EKG ST changes greater than 0.5mm: NO Positive Cardiac Marker: NO MITCHELL Score: 0 Risk %: 5% Wells Criteria for PE - Wells Criteria for Pulmonary Embolism Clinical Signs and Symptoms of DVT: No P.E is #1 Diagnosis, or Equally Likely: No Heart Rate >100: No Immobilization at least 3 days;Surgery previous 4 weeks: No Previous, objectively diagnosed PE or DVT: No Hemoptysis: No Malignancy w/treatment within 6 months, or palliative: No Total Score: 0 Review of Systems ROS Statement: Except As Marked, All Systems Reviewed And Found Negative Cardiovascular: Positive for: Chest Pain Physical Exam - Physical Exam Appears: Positive for: Well, Non-toxic, No Acute Distress Head Exam: Positive for: ATRAUMATIC, NORMAL INSPECTION, NORMOCEPHALIC Skin: Positive for: Normal Color, Warm. Negative for: Rash Eye Exam: Positive for: EOMI, Normal appearance, PERRL ENT: Positive for: Normal ENT Inspection Neck: Positive for: Normal, Painless ROM Cardiovascular/Chest: Positive for: Regular Rate, Rhythm. Negative for: Tachycardia, Friction Rub Respiratory: Positive for: Normal Breath Sounds Gastrointestinal/Abdominal: Positive for: Normal Exam, Soft. Negative for: Tenderness Back: Positive for: Normal Inspection Neurologic/Psych: Positive for: Alert, Oriented, Gait (steady, unassisted), Other (somnolent but arousable to verbal stimuli; follows directions appropriately; scent of marijuana noted). Negative for: Aphasia, Facial Droop - ECG ECG: Positive for: Interpreted By Me ECG Rhythm: Positive for: Sinus Rhythm. Negative for: ST/T Changes Rate: 95 O2 Sat by Pulse Oximetry: 100 - Progress ED Course And Treament: EKG, fingerstick, drug screen ordered. Case d/w Dr. Holt who agrees with care. 2301 FSBS: 177 Sleeping comfortably. Easily arousable. Pt. admits to drinking "soda and pizza" just prior to arrival. Disposition - Clinical Impression Clinical Impression: Polysubstance abuse - Patient ED Disposition Is Patient to be Admitted: Transfer of Care (Signed out to Tito DE LA FUENTE pending sobriety) - Disposition Disposition Time: 00:00 Condition: STABLE Forms: [facility] (Nicaraguan)
--- NOTE | 2018-01-27 04:55 | ED PDOC ---
- ECG O2 Sat by Pulse Oximetry: 100 - Progress ED Course And Treament: case endorsed to caption writer from Trevon DE LA FUENTE pending re-eval Disposition - Clinical Impression Clinical Impression: Polysubstance abuse - POA Present On Arrival: None - Disposition Disposition: Routine/Home Disposition Time: 04:55 Condition: IMPROVED Instructions: Drug Abuse Treatment Forms: [facility] (Iranian)
[2018-01-27 05:47] VITALS: RESP 17
[2018-01-27 05:48] VITALS: BP 127/69; PULSE 86; TEMP 98
--- NOTE | 2018-01-27 08:54 | CARD ---
APPROVED REPORT EKG Measurement Heart [id number] <Conclusion> Normal sinus rhythm Normal ECG
== END 2018-01-27 05:16 | disposition home or self-care (01) ==
LOC: H.ER 21:28
DX: R07.89 Other chest pain (principal); F19.10 Other psychoactive substance abuse, uncomplicated; F17.210 Nicotine dependence, cigarettes, uncomplicated; F31.9 Bipolar disorder, unspecified; F41.9 Anxiety disorder, unspecified

== ENCOUNTER 2018-01-28 11:35 | Emergency (ER) | payer MEDICAID ==
[2018-01-28 11:36] VITALS: BMI 30.7
[2018-01-28 12:08] VITALS: BP 128/75; PULSE 107; RESP 16; TEMP 99.4; O2SAT 98
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
== END 2018-01-28 12:33 | disposition home or self-care (01) ==
LOC: H.ER 11:35
DX: M54.5 Low back pain (principal); G89.29 Other chronic pain; Z86.59 Personal history of other mental and behavioral disorders; F17.200 Nicotine dependence, unspecified, uncomplicated

== ENCOUNTER 2018-01-29 08:31 | Emergency (ER) | payer MEDICAID ==
[2018-01-29 08:38] VITALS: TEMP 97; O2SAT 98; BMI 30.8
--- NOTE | 2018-01-29 09:20 | ED PDOC ---
HPI: Back Time Seen by Provider: 01/29/18 09:13 Chief Complaint (Nursing): Back Pain Chief Complaint (Provider): Back Pain History Per: Patient History/Exam Limitations: no limitations Onset/Duration Of Symptoms: Persistent Current Symptoms Are (Timing): Still Present Additional Complaint(s): 28 year old male, well-known to ED with medical history of chronic lower back pain, presents persistent back. He states that he has not followed up with clinic as advised. Patient is noted to be walking around ED without difficulty. Past Medical History Reviewed: Historical Data, Nursing Documentation, Vital Signs Vital Signs: Last Vital Signs Temp 97 F L 01/29/18 08:37 Pulse 99 H 01/29/18 08:37 Resp BP 139/93 H 01/29/18 08:37 Pulse Ox 98 01/29/18 08:37 - Medical History PMH: Anxiety, Arthritis, Back Problems, Bipolar Disorder, Bronchitis, Depression Denies: Diabetes, Hepatitis, HIV, HTN, Chronic Kidney Disease, Seizures, Sexually Transmitted Disease - Surgical History Surgical History: Hernia Repair (ventral) - Family History Family History: States: Unknown Family Hx Denies: [place], CAD - Social History Current smoker - smoking cessation education provided: Yes Alcohol: Social Drugs: Cannabis - Immunization History Hx Tetanus Toxoid Vaccination: Yes - Home Medications Home Medications: Ambulatory Orders Medication Instructions Recorded Cephalexin [Keflex] 500 mg PO Q6 #28 capsule 06/23/16 Polyethylene Glycol 3350 [Miralax] 17 gm PO DAILY PRN #30 each 08/07/16 Ibuprofen [Motrin] 600 mg PO Q6 #20 tab 11/28/16 oxyCODONE/Acetaminophen [Percocet 1 ea PO Q6 PRN #5 tab 11/28/16 5/325 mg Tab] Acetaminophen [Tylenol Extra 500 mg PO Q6 #20 tablet 11/29/16 Strength] Naproxen [Naprosyn] 500 mg PO BID PRN #15 tablet 12/05/16 Ibuprofen [Motrin Tab] 600 mg PO Q6 PRN #12 tab 12/17/17 Cyclobenzaprine [Cyclobenzaprine 10 mg PO BID #15 tab 12/18/17 HCl] Acetaminophen [Tylenol 325mg tab] 2 tab PO Q4 PRN #15 tab 12/25/17 Cyclobenzaprine [Flexeril] 10 mg PO TID #27 tab 01/05/18 Ibuprofen [Motrin Tab] 600 mg PO Q6 PRN #15 tab 01/08/18 Albuterol HFA [Ventolin HFA 90 2 puff IH [id number] #1 puff 01/10/18 mcg/actuation (8 g)] Cyclobenzaprine [Cyclobenzaprine 10 mg PO TID PRN #15 tab 01/23/18 HCl] Ibuprofen [Motrin] 600 mg PO Q6H PRN #20 tab 01/23/18 Albuterol HFA [Ventolin HFA 90 2 puff IH [id number] #2 units 01/24/18 mcg/actuation (8 g)] Ibuprofen [Motrin Tab] 1 tab PO QID #40 tab 01/24/18 - Allergies Allergies/Adverse Reactions: Allergies Allergy/AdvReac Type Severity Reaction Status Date / Time No Known Allergies Allergy Verified 01/28/18 12:04 Review of Systems ROS Statement: Except As Marked, All Systems Reviewed And Found Negative Musculoskeletal: Positive for: Back Pain (lower), Other (ambulating well) Physical Exam - Reviewed Nursing Documentation Reviewed: Yes Vital Signs Reviewed: Yes - Physical Exam Appears: Positive for: Well, Non-toxic, No Acute Distress Head Exam: Positive for: ATRAUMATIC, NORMAL INSPECTION, NORMOCEPHALIC Neck: Positive for: Normal, Painless ROM, Supple Cardiovascular/Chest: Positive for: Regular Rate, Rhythm Respiratory: Positive for: Normal Breath Sounds. Negative for: Wheezing, Respiratory Distress Back: Positive for: Vertebral Tenderness (paralumbar). Negative for: Other ( midline tenderness) Extremity: Positive for: Normal ROM (upper/lower). Negative for: Deformity ( upper/lower) Neurologic/Psych: Positive for: Alert (x3), Oriented, Gait (steady). Negative for: Motor/Sensory Deficits - ECG O2 Sat by Pulse Oximetry: 98 (RA) Pulse Ox Interpretation: Normal Medical Decision Making Medical Decision Making: Initial Impression: Chronic lower back pain Initial Plan: * Motrin 600mg PO Time: 918 --Upon provider evaluation, patient is medically stable and requires no further treatment in the ED at this time. Patient will be discharged home. Counseling was provided and all questions were answered regarding diagnosis and need for follow up with [facility]. There is agreement to discharge plan. Return if symptoms persist or worsen. Clinical Impression: Chronic lower back pain Scribe Attestation: Documented by Kaylee Villaseñor, acting as a scribe for Maine Reed MD. Provider Scribe Attestation: All medical record entries made by the Scribe were at my direction and personally dictated by me. I have reviewed the chart and agree that the record accurately reflects my personal performance of the history, physical exam, medical decision making, and the department course for this patient. I have also personally directed, reviewed, and agree with the discharge instructions and disposition. Disposition - Clinical Impression Clinical Impression: Chronic lower back pain - Patient ED Disposition Is Patient to be Admitted: No Counseled Patient/Family Regarding: Diagnosis, Need For Followup - Disposition Referrals: [facility] [Outside] Disposition: Routine/Home Disposition Time: 09:19 Condition: STABLE Instructions: Chronic Pain Forms: [facility] (Ukrainian)
[2018-01-29 10:02] VITALS: BP 120/78; PULSE 78; RESP 19
== END 2018-01-29 10:02 | disposition home or self-care (01) ==
LOC: H.ER 08:31
DX: M54.9 Dorsalgia, unspecified (principal); G89.29 Other chronic pain; F31.9 Bipolar disorder, unspecified; F41.9 Anxiety disorder, unspecified; F17.200 Nicotine dependence, unspecified, uncomplicated
CPT/HCPCS: 96372; 99282; J1885

== ENCOUNTER 2018-01-29 17:03 | Emergency (ER) | payer MEDICAID ==
[2018-01-29 17:03] VITALS: BMI 30.8
[2018-01-29 17:06] VITALS: TEMP 98.5
[2018-01-29] MEDS ORDERED: Sodium Chloride 0.9% 1,000 ML IV STA (17:17)
--- NOTE | 2018-01-29 17:29 | ED PDOC ---
HPI: General Adult Time Seen by Provider: 01/29/18 17:08 Chief Complaint (Nursing): Dizziness/Lightheaded Chief Complaint (Provider): Dizziness History Per: Patient History/Exam Limitations: no limitations Onset/Duration Of Symptoms: Hrs (x1) Current Symptoms Are (Timing): Still Present Additional Complaint(s): Pt known well to ER for homelessness and bed seeking behaviors. He has h/o drug abuse, but denies use except for marijuana earlier today. Past Medical History Reviewed: Historical Data, Nursing Documentation, Vital Signs Vital Signs: Last Vital Signs Temp 98.5 F 01/29/18 17:04 Pulse 94 H 01/29/18 19:00 Resp 18 01/29/18 19:00 BP 133/89 01/29/18 19:00 Pulse Ox 100 01/29/18 19:00 - Medical History PMH: Anxiety, Arthritis, Back Problems, Bipolar Disorder, Bronchitis, Depression Denies: Diabetes, Hepatitis, HIV, HTN, Chronic Kidney Disease, Seizures, Sexually Transmitted Disease - Surgical History Surgical History: Hernia Repair (ventral) - Family History Family History: States: Unknown Family Hx Denies: [place], CAD - Social History Current smoker - smoking cessation education provided: Yes Alcohol: > 2 Drinks/Day Drugs: Cannabis, Other (PCP) - Immunization History Hx Tetanus Toxoid Vaccination: Yes - Home Medications Home Medications: Ambulatory Orders Medication Instructions Recorded Cephalexin [Keflex] 500 mg PO Q6 #28 capsule 06/23/16 Polyethylene Glycol 3350 [Miralax] 17 gm PO DAILY PRN #30 each 08/07/16 Ibuprofen [Motrin] 600 mg PO Q6 #20 tab 11/28/16 oxyCODONE/Acetaminophen [Percocet 1 ea PO Q6 PRN #5 tab 11/28/16 5/325 mg Tab] Acetaminophen [Tylenol Extra 500 mg PO Q6 #20 tablet 11/29/16 Strength] Naproxen [Naprosyn] 500 mg PO BID PRN #15 tablet 12/05/16 Ibuprofen [Motrin Tab] 600 mg PO Q6 PRN #12 tab 12/17/17 Cyclobenzaprine [Cyclobenzaprine 10 mg PO BID #15 tab 12/18/17 HCl] Acetaminophen [Tylenol 325mg tab] 2 tab PO Q4 PRN #15 tab 12/25/17 Cyclobenzaprine [Flexeril] 10 mg PO TID #27 tab 01/05/18 Ibuprofen [Motrin Tab] 600 mg PO Q6 PRN #15 tab 01/08/18 Albuterol HFA [Ventolin HFA 90 2 puff IH [id number] #1 puff 01/10/18 mcg/actuation (8 g)] Cyclobenzaprine [Cyclobenzaprine 10 mg PO TID PRN #15 tab 01/23/18 HCl] Ibuprofen [Motrin] 600 mg PO Q6H PRN #20 tab 01/23/18 Albuterol HFA [Ventolin HFA 90 2 puff IH [id number] #2 units 01/24/18 mcg/actuation (8 g)] Ibuprofen [Motrin Tab] 1 tab PO QID #40 tab 01/24/18 - Allergies Allergies/Adverse Reactions: Allergies Allergy/AdvReac Type Severity Reaction Status Date / Time No Known Allergies Allergy Verified 01/28/18 12:04 Review of Systems ROS Statement: Except As Marked, All Systems Reviewed And Found Negative (as per HPI) Cardiovascular: Negative for: Chest Pain Gastrointestinal: Negative for: Nausea Neurological: Positive for: Dizziness. Negative for: Headache Psych: Negative for: Suicidal ideation, Other (Hallucinations) Physical Exam - Reviewed Nursing Documentation Reviewed: Yes Vital Signs Reviewed: Yes - Physical Exam Appears: Positive for: No Acute Distress (intoxicated) Head Exam: Positive for: ATRAUMATIC, NORMOCEPHALIC Skin: Positive for: Warm, Dry Eye Exam: Positive for: Nystagmus (subtle), Conjunctival injection ENT: Positive for: Normal ENT Inspection, Pharynx Is (clear), Other (tacky mucous membranes) Neck: Positive for: Painless ROM, Supple Cardiovascular/Chest: Positive for: Tachycardia (regular rhythm). Negative for : Murmur Respiratory: Positive for: Normal Breath Sounds. Negative for: Respiratory Distress Gastrointestinal/Abdominal: Positive for: Soft. Negative for: Tenderness Back: Positive for: Normal Inspection. Negative for: Decreased ROM Extremity: Positive for: Normal ROM. Negative for: Deformity Lymphatic: Negative for: Adenopathy Neurologic/Psych: Positive for: Alert (answers questions slowly), Oriented (x3) , Mood/Affect (anxious mood, flat affect). Negative for: Motor/Sensory Deficits - Laboratory Results Result Diagrams: 01/29/18 17:55 01/29/18 17:55 - ECG O2 Sat by Pulse Oximetry: 94 (RA) Medical Decision Making Medical Decision Making: Time: 17:16 Initial Impression: Dizziness. Differential diagnoses include, but are not limited to drug intoxication, alcohol intoxication, dehydration, and electrolyte imbalance. Plan: --EKG --Alcohol serum --CMP --Drug screen --CBC --Sodium Chloride 0.9% 1,000 mls/hr --IV Insertion --Glucose, Blood, POC --Reevaluation 1900 Pt ambulating without difficulty. Reports feeling better. UDS cw polysubstance abuse. Stable for dc. Scribe Attestation: Documented by Magdy Martinez, acting as a scribe for Araceli Christy MD. Provider Scribe Attestation: All medical record entries made by the Scribe were at my direction and personally dictated by me. I have reviewed the chart and agree that the record accurately reflects my personal performance of the history, physical exam, medical decision making, and the department course for this patient. I have also personally directed, reviewed, and agree with the discharge instructions and disposition. Disposition - Clinical Impression Clinical Impression: Dizzy spells, Substance abuse Counseled Patient/Family Regarding: Studies Performed, Diagnosis - Disposition Disposition: Routine/Home Disposition Time: 19:00 Condition: IMPROVED Instructions: Drug Abuse and Drug Addiction (DC), Dizziness, Nonvertigo, (DC) Forms: [employer] (Gambian)
[2018-01-29 18:04] LABS: BASO # 0.1 K/uL (0.0-0.2); BASO % 0.9 % (0.0-2.0); EOS # 0.3 K/uL (0.0-0.7); EOS % 3.7 % (0.0-4.0); HEMOGLOBIN 13.1 g/dL (12.0-18.0); LYMPH # 2.1 K/uL (1.0-4.3); LYMPH % 25.4 % (20.0-40.0); MEAN CELL VOLUME 92.3 fl (80.0-94.0); MEAN CORPUSCULAR HEMOGLOBIN 31.1 pg (27.0-31.0); MEAN CORPUSCULAR HGB CONC 33.8 g/dL (33.0-37.0); MEAN PLATELET VOLUME 6.5 fl (7.2-11.7); MONO # 0.7 K/uL (0.0-0.8); MONO % 8.2 % (0.0-10.0); NEUT % 61.8 % (50.0-75.0); NRBC % 0.1 % (0.0-0.0); RBC 4.19 Mil/uL (4.40-5.90); RED CELL DISTRIBUTION WIDTH 14.6 % (11.5-14.5); WHITE BLOOD COUNT 8.1 K/uL (4.8-10.8)
[2018-01-29 18:20] LABS: BARBITURATES, UR NEGATIVE (NEGATIVE)
[2018-01-29 18:26] LABS: ALB/GLOB RATIO 1.3 (1.0-2.1); ALBUMIN 4.1 g/dL (3.5-5.0); ALT/SGPT 64 U/L (21-72); AST/SGOT 67 U/L (17-59); BENZODIAZEPINES, UR NEGATIVE (NEGATIVE); BLOOD UREA NITROGEN 17 mg/dl (9-20); CALCIUM 9.3 mg/dL (8.4-10.2); GFR AFRICAN-AMERICAN > 60; GFR NON-AFRICAN AMERICAN > 60; OPIATES, UR NEGATIVE (NEGATIVE); PHENCYCLIDINE, UR POSITIVE (NEGATIVE)
[2018-01-29 19:01] VITALS: BP 133/89; PULSE 94; RESP 18
[2018-01-29 23:40] VITALS: O2SAT 94
--- NOTE | 2018-01-30 10:35 | CARD ---
APPROVED REPORT EKG Measurement Heart [id number] <Conclusion> Normal sinus rhythm Left axis deviation Abnormal ECG
== END 2018-01-29 19:15 | disposition home or self-care (01) ==
LOC: H.ER 17:03
DX: R42 Dizziness and giddiness (principal); F19.10 Other psychoactive substance abuse, uncomplicated; F31.9 Bipolar disorder, unspecified; F41.9 Anxiety disorder, unspecified; F17.200 Nicotine dependence, unspecified, uncomplicated; Z59.0 Homelessness

== ENCOUNTER 2018-02-01 00:56 | Emergency (ER) | payer MEDICAID ==
[2018-02-01 00:56] VITALS: BMI 30.8
[2018-02-01] MEDS ORDERED: Naproxen 500 MG TAB PO STA (01:31)
--- NOTE | 2018-02-01 01:32 | ED PDOC ---
HPI: General Adult Time Seen by Provider: 02/01/18 01:05 Chief Complaint (Nursing): Dizziness/Lightheaded Chief Complaint (Provider): back pain, dizziness History Per: Patient History/Exam Limitations: no limitations Onset/Duration Of Symptoms: Hrs Have you had recent travel within the past 21 days to any of the following countries: [place], [place], [place] or [place]?: No Current Symptoms Are (Timing): Still Present Additional Complaint(s): 28 yo male with chronic back pain presents with low back pain and feeling dizzy. Pt ambulated with steady gait on arrival. Pt states he smoked marijuana prior to arrival and he is sleepy. Pt denies chest pain, SOB, abdominal pain, weakness. Past Medical History Reviewed: Historical Data, Nursing Documentation, Vital Signs Vital Signs: Last Vital Signs Temp 98.7 F 02/01/18 01:11 Pulse 116 H 02/01/18 01:11 Resp 17 02/01/18 01:11 BP 132/86 02/01/18 01:11 Pulse Ox 98 02/01/18 01:11 - Medical History PMH: Anxiety, Arthritis, Back Problems, Bipolar Disorder, Bronchitis, Depression Denies: Diabetes, Hepatitis, HIV, HTN, Chronic Kidney Disease, Seizures, Sexually Transmitted Disease - Surgical History Surgical History: Hernia Repair (ventral) - Family History Family History: States: Unknown Family Hx Denies: [place], CAD - Immunization History Hx Tetanus Toxoid Vaccination: Yes - Home Medications Home Medications: Ambulatory Orders Medication Instructions Recorded Cephalexin [Keflex] 500 mg PO Q6 #28 capsule 06/23/16 Polyethylene Glycol 3350 [Miralax] 17 gm PO DAILY PRN #30 each 08/07/16 Ibuprofen [Motrin] 600 mg PO Q6 #20 tab 11/28/16 oxyCODONE/Acetaminophen [Percocet 1 ea PO Q6 PRN #5 tab 11/28/16 5/325 mg Tab] Acetaminophen [Tylenol Extra 500 mg PO Q6 #20 tablet 11/29/16 Strength] Naproxen [Naprosyn] 500 mg PO BID PRN #15 tablet 12/05/16 Ibuprofen [Motrin Tab] 600 mg PO Q6 PRN #12 tab 12/17/17 Cyclobenzaprine [Cyclobenzaprine 10 mg PO BID #15 tab 12/18/17 HCl] Acetaminophen [Tylenol 325mg tab] 2 tab PO Q4 PRN #15 tab 12/25/17 Cyclobenzaprine [Flexeril] 10 mg PO TID #27 tab 01/05/18 Ibuprofen [Motrin Tab] 600 mg PO Q6 PRN #15 tab 01/08/18 Albuterol HFA [Ventolin HFA 90 2 puff IH [id number] #1 puff 01/10/18 mcg/actuation (8 g)] Cyclobenzaprine [Cyclobenzaprine 10 mg PO TID PRN #15 tab 01/23/18 HCl] Ibuprofen [Motrin] 600 mg PO Q6H PRN #20 tab 01/23/18 Albuterol HFA [Ventolin HFA 90 2 puff IH [id number] #2 units 01/24/18 mcg/actuation (8 g)] Ibuprofen [Motrin Tab] 1 tab PO QID #40 tab 01/24/18 - Allergies Allergies/Adverse Reactions: Allergies Allergy/AdvReac Type Severity Reaction Status Date / Time No Known Allergies Allergy Verified 02/01/18 01:11 Review of Systems ROS Statement: Except As Marked, All Systems Reviewed And Found Negative Constitutional: Negative for: Fever, Chills Respiratory: Negative for: Cough, Shortness of Breath Musculoskeletal: Positive for: Back Pain Skin: Negative for: Bruising Neurological: Positive for: Dizziness. Negative for: Confusion, Seizures, Altered Mental Status, Headache Physical Exam - Reviewed Nursing Documentation Reviewed: Yes Vital Signs Reviewed: Yes - Physical Exam Appears: Positive for: Well, Non-toxic, No Acute Distress Head Exam: Positive for: ATRAUMATIC, NORMAL INSPECTION, NORMOCEPHALIC Skin: Positive for: Normal Color, Warm, DRY Eye Exam: Positive for: Normal appearance ENT: Positive for: Normal ENT Inspection Neck: Positive for: Normal, Painless ROM Cardiovascular/Chest: Positive for: Regular Rate, Rhythm Respiratory: Positive for: CNT, Normal Breath Sounds Back: Positive for: Normal Inspection. Negative for: Vertebral Tenderness Extremity: Positive for: Normal ROM Neurologic/Psych: Positive for: Alert, Oriented - ECG O2 Sat by Pulse Oximetry: 98 Medical Decision Making Medical Decision Making: EKG Naproxen givne in ER for back pain. Disposition - Clinical Impression Clinical Impression: Polysubstance abuse - Patient ED Disposition Is Patient to be Admitted: No Counseled Patient/Family Regarding: Diagnosis, Need For Followup - Disposition Disposition: Routine/Home Disposition Time: 01:32 Condition: GOOD Instructions: Drug Abuse and Drug Addiction (DC)
[2018-02-01 01:48] VITALS: BP 112/76; PULSE 93; RESP 16; TEMP 98.5; O2SAT 100
[2018-02-01] MEDS ORDERED: Naproxen 500 MG TAB PO ONE (01:49)
--- NOTE | 2018-02-01 10:38 | CARD ---
APPROVED REPORT EKG Measurement Heart [id number] <Conclusion> Normal sinus rhythm Left axis deviation Abnormal ECG
== END 2018-02-01 03:05 | disposition home or self-care (01) ==
LOC: H.ER 00:56
DX: F19.10 Other psychoactive substance abuse, uncomplicated (principal); G89.29 Other chronic pain; F12.90 Cannabis use, unspecified, uncomplicated; F31.9 Bipolar disorder, unspecified; F41.9 Anxiety disorder, unspecified; R42 Dizziness and giddiness

== ENCOUNTER 2018-02-03 07:47 | Emergency (ER) | payer MEDICAID ==
[2018-02-03 07:56] VITALS: BMI 30.5
--- NOTE | 2018-02-03 08:28 | ED PDOC ---
HPI: Back Time Seen by Provider: 02/03/18 08:07 Chief Complaint (Provider): Back pain History Per: Patient History/Exam Limitations: no limitations Current Symptoms Are (Timing): Still Present Quality Of Discomfort: "Pain" Previous Symptoms: Back Pain, Chronic Pain Associated Symptoms: None Additional Complaint(s): 28yo male with history of chronic back pain, presents to ED with complaints of back pain. Patient denies any new injury, trauma, weakness, numbness, bowel or bladder dysfunction. He has no other medical complaints. Past Medical History Reviewed: Historical Data, Nursing Documentation, Vital Signs Vital Signs: Last Vital Signs Temp 97 F L 02/03/18 07:55 Pulse 94 H 02/03/18 07:55 Resp BP 133/83 02/03/18 07:55 Pulse Ox 97 02/03/18 07:55 - Medical History PMH: Anxiety, Arthritis, Back Problems, Bipolar Disorder, Bronchitis, Depression Denies: Diabetes, Hepatitis, HIV, HTN, Chronic Kidney Disease, Seizures, Sexually Transmitted Disease - Surgical History Surgical History: Hernia Repair (ventral) - Family History Family History: States: Unknown Family Hx Denies: [place], CAD - Immunization History Hx Tetanus Toxoid Vaccination: Yes - Home Medications Home Medications: Ambulatory Orders Medication Instructions Recorded Cephalexin [Keflex] 500 mg PO Q6 #28 capsule 06/23/16 Polyethylene Glycol 3350 [Miralax] 17 gm PO DAILY PRN #30 each 08/07/16 Ibuprofen [Motrin] 600 mg PO Q6 #20 tab 11/28/16 oxyCODONE/Acetaminophen [Percocet 1 ea PO Q6 PRN #5 tab 11/28/16 5/325 mg Tab] Acetaminophen [Tylenol Extra 500 mg PO Q6 #20 tablet 11/29/16 Strength] Naproxen [Naprosyn] 500 mg PO BID PRN #15 tablet 12/05/16 Ibuprofen [Motrin Tab] 600 mg PO Q6 PRN #12 tab 12/17/17 Cyclobenzaprine [Cyclobenzaprine 10 mg PO BID #15 tab 12/18/17 HCl] Acetaminophen [Tylenol 325mg tab] 2 tab PO Q4 PRN #15 tab 12/25/17 Cyclobenzaprine [Flexeril] 10 mg PO TID #27 tab 01/05/18 Ibuprofen [Motrin Tab] 600 mg PO Q6 PRN #15 tab 01/08/18 Albuterol HFA [Ventolin HFA 90 2 puff IH [id number] #1 puff 01/10/18 mcg/actuation (8 g)] Cyclobenzaprine [Cyclobenzaprine 10 mg PO TID PRN #15 tab 01/23/18 HCl] Ibuprofen [Motrin] 600 mg PO Q6H PRN #20 tab 01/23/18 Albuterol HFA [Ventolin HFA 90 2 puff IH [id number] #2 units 01/24/18 mcg/actuation (8 g)] Ibuprofen [Motrin Tab] 1 tab PO QID #40 tab 01/24/18 - Allergies Allergies/Adverse Reactions: Allergies Allergy/AdvReac Type Severity Reaction Status Date / Time No Known Allergies Allergy Verified 02/01/18 01:11 Review of Systems ROS Statement: Except As Marked, All Systems Reviewed And Found Negative Genitourinary Male: Negative for: Dysuria, Incontinence, Hematuria Musculoskeletal: Positive for: Back Pain Neurological: Negative for: Weakness, Numbness Physical Exam - Reviewed Nursing Documentation Reviewed: Yes Vital Signs Reviewed: Yes - Physical Exam Appears: Positive for: Non-toxic, No Acute Distress Head Exam: Positive for: ATRAUMATIC, NORMAL INSPECTION, NORMOCEPHALIC Skin: Positive for: Normal Color Eye Exam: Positive for: Normal appearance Neck: Positive for: Supple Cardiovascular/Chest: Positive for: Regular Rate, Rhythm Respiratory: Positive for: Normal Breath Sounds Back: Positive for: Normal Inspection. Negative for: L CVA Tenderness, R CVA Tenderness, Vertebral Tenderness Extremity: Positive for: Normal ROM. Negative for: Deformity Neurologic/Psych: Positive for: Alert, Oriented. Negative for: Motor/Sensory Deficits - ECG O2 Sat by Pulse Oximetry: 97 (RA) Pulse Ox Interpretation: Normal Medical Decision Making Medical Decision Making: Impression: Chronic back pain exacerbation Plan: -- Motrin 600 mg PO Time: 822 Patient is becoming increasingly aggressive and threatening to provider. Patient demanding IM narcotics for pain relief. Patient following provider around in ER and threatening physical violence. Has chronic pain. Will give motrin and dc. AAOx3. Scribe Attestation: Documented by Bia Menezes acting as a scribe for Sourav Gonzáles MD Provider Attestation: All medical record entries made by the Scribe were at my direction and personally dictated by me. I have reviewed the chart and agree that the record accurately reflects my personal performance of the history, physical exam, medical decision making, and the department course for this patient. I have also personally directed, reviewed, and agree with the discharge instructions and disposition. Disposition - Clinical Impression Clinical Impression: Chronic back pain - Patient ED Disposition Is Patient to be Admitted: No Counseled Patient/Family Regarding: Diagnosis, Need For Followup - Disposition Referrals: [facility] [Outside] Disposition: Routine/Home Disposition Time: 08:33 Condition: STABLE Instructions: Chronic Pain (DC)
[2018-02-03 08:39] VITALS: BP 130/76; RESP 18; TEMP 98
[2018-02-03 08:41] VITALS: PULSE 87; O2SAT 97
== END 2018-02-03 08:45 | disposition home or self-care (01) ==
LOC: H.ER 07:47
DX: M54.9 Dorsalgia, unspecified (principal); G89.29 Other chronic pain; F31.9 Bipolar disorder, unspecified; F41.9 Anxiety disorder, unspecified

== ENCOUNTER 2018-02-03 21:10 | Emergency (ER) | payer MEDICAID ==
[2018-02-03 21:10] VITALS: BMI 30.5
[2018-02-03 21:17] VITALS: BP 161/92; RESP 16; TEMP 97.9; O2SAT 98
--- NOTE | 2018-02-03 22:01 | ED PDOC ---
HPI: Chest Pain Time Seen by Provider: 02/03/18 21:24 Chief Complaint (Nursing): Chest Pain Chief Complaint (Provider): chest pain History Per: Patient Additional Complaint(s): 28-year-old non-domicile male presents to emergency department complaining of chest pain that started earlier today. Patient is well-known to the ED for frequent visits. He denies any alcohol or drug use but has been positive for PCP , cocaine and marijuana in the past. He denies alcohol use. PMD: none Past Medical History Reviewed: Historical Data, Nursing Documentation, Vital Signs Vital Signs: Last Vital Signs Temp 97.9 F 02/03/18 21:15 Pulse 113 H 02/03/18 21:15 Resp 16 02/03/18 21:15 BP 161/92 H 02/03/18 21:15 Pulse Ox 98 02/03/18 22:01 - Medical History PMH: Anxiety, Arthritis, Back Problems, Bipolar Disorder, Bronchitis, Depression - Surgical History Surgical History: Hernia Repair (ventral) - Family History Family History: States: Unknown Family Hx - Living Arrangements Living Arrangements: With Family - Social History Current smoker - smoking cessation education provided: No Alcohol: None Drugs: Denies - Immunization History Hx Tetanus Toxoid Vaccination: Yes - Home Medications Home Medications: Ambulatory Orders Medication Instructions Recorded Cephalexin [Keflex] 500 mg PO Q6 #28 capsule 06/23/16 Polyethylene Glycol 3350 [Miralax] 17 gm PO DAILY PRN #30 each 08/07/16 Ibuprofen [Motrin] 600 mg PO Q6 #20 tab 11/28/16 oxyCODONE/Acetaminophen [Percocet 1 ea PO Q6 PRN #5 tab 11/28/16 5/325 mg Tab] Acetaminophen [Tylenol Extra 500 mg PO Q6 #20 tablet 11/29/16 Strength] Naproxen [Naprosyn] 500 mg PO BID PRN #15 tablet 12/05/16 Ibuprofen [Motrin Tab] 600 mg PO Q6 PRN #12 tab 12/17/17 Cyclobenzaprine [Cyclobenzaprine 10 mg PO BID #15 tab 12/18/17 HCl] Acetaminophen [Tylenol 325mg tab] 2 tab PO Q4 PRN #15 tab 12/25/17 Cyclobenzaprine [Flexeril] 10 mg PO TID #27 tab 03/28/18 Ibuprofen [Motrin Tab] 600 mg PO Q6 PRN #15 tab 01/08/18 Albuterol HFA [Ventolin HFA 90 2 puff IH [id number] #1 puff 01/10/18 mcg/actuation (8 g)] Cyclobenzaprine [Cyclobenzaprine 10 mg PO TID PRN #15 tab 01/23/18 HCl] Ibuprofen [Motrin] 600 mg PO Q6H PRN #20 tab 01/23/18 Albuterol HFA [Ventolin HFA 90 2 puff IH [id number] #2 units 01/24/18 mcg/actuation (8 g)] Ibuprofen [Motrin Tab] 1 tab PO QID #40 tab 01/24/18 - Allergies Allergies/Adverse Reactions: Allergies Allergy/AdvReac Type Severity Reaction Status Date / Time No Known Allergies Allergy Verified 02/03/18 21:15 MITCHELL Risk Score for UA/NSTEMI - MITCHELL Risk Score Age > 64: NO 3 or more CAD Risk Factors: NO Known CAD (Stenosis greater than 50%): NO Aspirin use in past 7 days: NO Severe Angina: NO EKG ST changes greater than 0.5mm: NO Positive Cardiac Marker: NO MITCHELL Score: 0 Risk %: 5% Wells Criteria for PE - Wells Criteria for Pulmonary Embolism Clinical Signs and Symptoms of DVT: No P.E is #1 Diagnosis, or Equally Likely: No Heart Rate >100: No Immobilization at least 3 days;Surgery previous 4 weeks: No Previous, objectively diagnosed PE or DVT: No Hemoptysis: No Malignancy w/treatment within 6 months, or palliative: No Total Score: 0 Review of Systems ROS Statement: Except As Marked, All Systems Reviewed And Found Negative Cardiovascular: Positive for: Chest Pain, Palpitations Respiratory: Negative for: Cough Gastrointestinal: Negative for: Nausea, Vomiting Neurological: Negative for: Headache, Dizziness Physical Exam - Reviewed Nursing Documentation Reviewed: Yes Vital Signs Reviewed: Yes - Physical Exam Appears: Positive for: Well, Non-toxic, No Acute Distress Skin: Negative for: Rash Eye Exam: Positive for: Normal appearance Cardiovascular/Chest: Positive for: Tachycardia Respiratory: Positive for: Normal Breath Sounds. Negative for: Respiratory Distress Extremity: Positive for: Normal ROM Neurologic/Psych: Positive for: Alert, Oriented - ECG Interpretation Of ECG: Sinus tach 114 bpm, no acute changes, reviewed by PA and ED attending O2 Sat by Pulse Oximetry: 98 Pulse Ox Interpretation: Normal Medical Decision Making Medical Decision Makin28 year old male with chest pain. Previous records reviewed. Patient is well-known to the emergency room for frequent almost daily visits. He has history of substance abuse. Plan: EKG CXR After initial evaluation patient was noted to have left ED room. Disposition - Clinical Impression Clinical Impression: Chest pain - Patient ED Disposition Is Patient to be Admitted: No - Disposition Disposition: Left W/O Treatment Disposition Time: 22:13 Condition: UNKNOWN Forms: [employer] (Belarusian)
[2018-02-04 00:52] VITALS: PULSE 98
== END 2018-02-04 00:52 | disposition left against medical advice (07) ==
LOC: H.ER 21:10
DX: R07.89 Other chest pain (principal); F41.9 Anxiety disorder, unspecified; F31.9 Bipolar disorder, unspecified

== ENCOUNTER 2018-02-04 15:08 | Emergency (ER) | payer MEDICAID ==
[2018-02-04 15:08] VITALS: BMI 30.5
[2018-02-04 15:18] VITALS: BP 148/93; PULSE 82; RESP 16; TEMP 98; O2SAT 100
== END 2018-02-04 15:56 | disposition left against medical advice (07) ==
LOC: H.ER 15:08
DX: Z02.89 Encounter for other administrative examinations (principal)

== ENCOUNTER 2018-02-05 02:40 | Emergency (ER) | payer MEDICAID ==
[2018-02-05 02:41] VITALS: BMI 30.5
[2018-02-05 03:18] VITALS: BP 135/82; PULSE 94; RESP 18; TEMP 98; O2SAT 98
[2018-02-05] MEDS ORDERED: Naproxen 500 MG TAB PO STA (05:35)
--- NOTE | 2018-02-05 06:54 | ED PDOC ---
HPI: Back Time Seen by Provider: 02/05/18 04:42 Chief Complaint (Nursing): Back Pain History Per: Patient History/Exam Limitations: no limitations Onset/Duration Of Symptoms: Mins Quality Of Discomfort: Unable To Describe Additional Complaint(s): PA Past Medical History Vital Signs: Last Vital Signs Temp 98 F 02/05/18 03:17 Pulse 94 H 02/05/18 03:17 Resp 18 02/05/18 03:17 BP 135/82 02/05/18 03:17 Pulse Ox 98 02/05/18 03:17 - Medical History PMH: Anxiety, Arthritis, Back Problems, Bipolar Disorder, Bronchitis, Depression Denies: Diabetes, Hepatitis, HIV, HTN, Chronic Kidney Disease, Seizures, Sexually Transmitted Disease - Surgical History Surgical History: Hernia Repair (ventral) - Family History Family History: States: Unknown Family Hx Denies: [place], CAD - Immunization History Hx Tetanus Toxoid Vaccination: Yes - Home Medications Home Medications: Ambulatory Orders Medication Instructions Recorded Cephalexin [Keflex] 500 mg PO Q6 #28 capsule 06/23/16 Polyethylene Glycol 3350 [Miralax] 17 gm PO DAILY PRN #30 each 08/07/16 Ibuprofen [Motrin] 600 mg PO Q6 #20 tab 11/28/16 oxyCODONE/Acetaminophen [Percocet 1 ea PO Q6 PRN #5 tab 11/28/16 5/325 mg Tab] Acetaminophen [Tylenol Extra 500 mg PO Q6 #20 tablet 11/29/16 Strength] Naproxen [Naprosyn] 500 mg PO BID PRN #15 tablet 12/05/16 Ibuprofen [Motrin Tab] 600 mg PO Q6 PRN #12 tab 12/17/17 Cyclobenzaprine [Cyclobenzaprine 10 mg PO BID #15 tab 12/18/17 HCl] Acetaminophen [Tylenol 325mg tab] 2 tab PO Q4 PRN #15 tab 12/25/17 Cyclobenzaprine [Flexeril] 10 mg PO TID #27 tab 01/05/18 Ibuprofen [Motrin Tab] 600 mg PO Q6 PRN #15 tab 01/08/18 Albuterol HFA [Ventolin HFA 90 2 puff IH [id number] #1 puff 01/10/18 mcg/actuation (8 g)] Cyclobenzaprine [Cyclobenzaprine 10 mg PO TID PRN #15 tab 01/23/18 HCl] Ibuprofen [Motrin] 600 mg PO Q6H PRN #20 tab 01/23/18 Albuterol HFA [Ventolin HFA 90 2 puff IH [id number] #2 units 01/24/18 mcg/actuation (8 g)] Ibuprofen [Motrin Tab] 1 tab PO QID #40 tab 01/24/18 Lidocaine 1 each TP DAILY #5 adh..patch 02/05/18 - Allergies Allergies/Adverse Reactions: Allergies Allergy/AdvReac Type Severity Reaction Status Date / Time No Known Allergies Allergy Verified 02/04/18 15:15 - ECG O2 Sat by Pulse Oximetry: 98 Disposition - Clinical Impression Clinical Impression: Lower back pain - Disposition Referrals: [facility] [Outside] Condition: STABLE Prescriptions: Lidocaine 1 each TP DAILY #5 adh..patch Instructions: Low Back Pain (DC) Forms: [facility] [employer] [facility] (Portuguese)
== END 2018-02-05 06:10 | disposition home or self-care (01) ==
LOC: H.ER 02:40
DX: M54.5 Low back pain (principal); F31.9 Bipolar disorder, unspecified; F41.9 Anxiety disorder, unspecified

== ENCOUNTER 2018-02-05 19:29 | Emergency (ER) | payer MEDICAID ==
[2018-02-05 19:29] VITALS: BMI 30.5
[2018-02-05 19:39] VITALS: BP 130/78; PULSE 78; RESP 18; TEMP 98; O2SAT 98
== END 2018-02-05 20:00 | disposition left against medical advice (07) ==
LOC: H.ER 19:29
DX: Z02.89 Encounter for other administrative examinations (principal)

== ENCOUNTER 2018-02-06 02:11 | Emergency (ER) | payer MEDICAID ==
[2018-02-06 02:11] VITALS: BMI 30.5
[~2018-02-06 02:11] MED LIST: Naproxen 500 MG TAB PO ONE
[2018-02-06 02:44] VITALS: RESP 18
--- NOTE | 2018-02-06 04:02 | ED PDOC ---
HPI: General Adult Time Seen by Provider: 02/06/18 03:28 Chief Complaint (Nursing): Medical Clearance History Per: Patient History/Exam Limitations: no limitations Additional Complaint(s): Patient seen nearly daily in ED arrives under arrest for medical and psychiatric clearance, patient has no complaints. Past Medical History Vital Signs: Last Vital Signs Temp 98.0 F 02/06/18 02:20 Pulse 94 H 02/06/18 02:20 Resp 18 02/06/18 02:20 BP 129/74 02/06/18 02:20 Pulse Ox 95 02/06/18 02:20 - Medical History PMH: Anxiety, Arthritis, Back Problems, Bipolar Disorder, Bronchitis, Depression Denies: Diabetes, Hepatitis, HIV, HTN, Chronic Kidney Disease, Seizures, Sexually Transmitted Disease - Surgical History Surgical History: Hernia Repair (ventral) - Family History Family History: States: Unknown Family Hx Denies: [place], CAD - Immunization History Hx Tetanus Toxoid Vaccination: Yes - Home Medications Home Medications: Ambulatory Orders Medication Instructions Recorded Cephalexin [Keflex] 500 mg PO Q6 #28 capsule 06/23/16 Polyethylene Glycol 3350 [Miralax] 17 gm PO DAILY PRN #30 each 08/07/16 Ibuprofen [Motrin] 600 mg PO Q6 #20 tab 11/28/16 oxyCODONE/Acetaminophen [Percocet 1 ea PO Q6 PRN #5 tab 11/28/16 5/325 mg Tab] Acetaminophen [Tylenol Extra 500 mg PO Q6 #20 tablet 11/29/16 Strength] Naproxen [Naprosyn] 500 mg PO BID PRN #15 tablet 12/05/16 Ibuprofen [Motrin Tab] 600 mg PO Q6 PRN #12 tab 12/17/17 Cyclobenzaprine [Cyclobenzaprine 10 mg PO BID #15 tab 12/18/17 HCl] Acetaminophen [Tylenol 325mg tab] 2 tab PO Q4 PRN #15 tab 12/25/17 Cyclobenzaprine [Flexeril] 10 mg PO TID #27 tab 01/05/18 Ibuprofen [Motrin Tab] 600 mg PO Q6 PRN #15 tab 01/08/18 Albuterol HFA [Ventolin HFA 90 2 puff IH [id number] #1 puff 01/10/18 mcg/actuation (8 g)] Cyclobenzaprine [Cyclobenzaprine 10 mg PO TID PRN #15 tab 01/23/18 HCl] Ibuprofen [Motrin] 600 mg PO Q6H PRN #20 tab 01/23/18 Albuterol HFA [Ventolin HFA 90 2 puff IH [id number] #2 units 01/24/18 mcg/actuation (8 g)] Ibuprofen [Motrin Tab] 1 tab PO QID #40 tab 01/24/18 Lidocaine 1 each TP DAILY #5 adh..patch 02/05/18 - Allergies Allergies/Adverse Reactions: Allergies Allergy/AdvReac Type Severity Reaction Status Date / Time No Known Allergies Allergy Verified 02/06/18 02:38 Review of Systems ROS Statement: Except As Marked, All Systems Reviewed And Found Negative Physical Exam - Reviewed Nursing Documentation Reviewed: Yes Vital Signs Reviewed: Yes - Physical Exam Appears: Positive for: Well, Non-toxic, No Acute Distress Head Exam: Positive for: ATRAUMATIC, NORMAL INSPECTION, NORMOCEPHALIC Skin: Positive for: Normal Color, Warm, DRY Eye Exam: Positive for: EOMI, Normal appearance, PERRL Neck: Positive for: Normal, Painless ROM Cardiovascular/Chest: Positive for: Regular Rate, Rhythm Respiratory: Positive for: CNT, Normal Breath Sounds Neurologic/Psych: Positive for: Alert, web production assistant II-XII, Oriented - ECG O2 Sat by Pulse Oximetry: 95 Pulse Ox Interpretation: Normal Medical Decision Making Medical Decision Making: Patient with no complaints at this time, normal vitals, well appearing, asking to sleep. will discharge. Disposition - Clinical Impression Clinical Impression: Normal exam - Patient ED Disposition Is Patient to be Admitted: No - Disposition [facility] [Outside] Disposition: Routine/Home Disposition Time: 04:02 Condition: GOOD Additional Instructions: Patient is medically and psychiatrically cleared for incarceration.
[2018-02-06 04:37] VITALS: BP 136/81; PULSE 93; TEMP 98.1; O2SAT 98
== END 2018-02-06 04:22 ==
LOC: H.ER 02:11
DX: F31.9 Bipolar disorder, unspecified; F41.9 Anxiety disorder, unspecified

== ENCOUNTER 2018-04-05 03:34 | Emergency (ER) | payer SELFPAY ==
[2018-04-05 03:35] VITALS: BMI 30.5
[2018-04-05 03:58] VITALS: BP 139/89; RESP 16; TEMP 98.6; O2SAT 100
--- NOTE | 2018-04-05 04:00 | ED PDOC ---
HPI: Chest Pain Time Seen by Provider: 04/05/18 03:58 Chief Complaint (Nursing): Chest Pain Chief Complaint (Provider): chest pain History Per: Patient (28 y/o male undomiciled here for evaluation of right sided upper chest wall pain by armpit. States he usually sleeps with arm hyperextended. Notes pain x 1 hour.) Past Medical History Reviewed: Historical Data, Nursing Documentation, Vital Signs Vital Signs: Last Vital Signs Temp 98.6 F 04/05/18 03:55 Pulse 98 H 04/05/18 03:55 Resp 16 04/05/18 03:55 BP 139/89 04/05/18 03:55 Pulse Ox 100 04/05/18 03:55 - Medical History PMH: Anxiety, Arthritis, Back Problems, Bipolar Disorder, Bronchitis, Depression Denies: Diabetes, Hepatitis, HIV, HTN, Chronic Kidney Disease, Seizures, Sexually Transmitted Disease - Surgical History Surgical History: Hernia Repair (ventral) - Family History Family History: States: Unknown Family Hx Denies: [place], CAD - Immunization History Hx Tetanus Toxoid Vaccination: Yes - Home Medications Home Medications: Ambulatory Orders Medication Instructions Recorded Cephalexin [Keflex] 500 mg PO Q6 #28 capsule 06/23/16 Polyethylene Glycol 3350 [Miralax] 17 gm PO DAILY PRN #30 each 08/07/16 Ibuprofen [Motrin] 600 mg PO Q6 #20 tab 11/28/16 oxyCODONE/Acetaminophen [Percocet 1 ea PO Q6 PRN #5 tab 11/28/16 5/325 mg Tab] Acetaminophen [Tylenol Extra 500 mg PO Q6 #20 tablet 11/29/16 Strength] Naproxen [Naprosyn] 500 mg PO BID PRN #15 tablet 12/05/16 Ibuprofen [Motrin Tab] 600 mg PO Q6 PRN #12 tab 12/17/17 Cyclobenzaprine [Cyclobenzaprine 10 mg PO BID #15 tab 12/18/17 HCl] Acetaminophen [Tylenol 325mg tab] 2 tab PO Q4 PRN #15 tab 12/25/17 Cyclobenzaprine [Flexeril] 10 mg PO TID #27 tab 01/05/18 Ibuprofen [Motrin Tab] 600 mg PO Q6 PRN #15 tab 01/08/18 Albuterol HFA [Ventolin HFA 90 2 puff IH [id number] #1 puff 01/10/18 mcg/actuation (8 g)] Cyclobenzaprine [Cyclobenzaprine 10 mg PO TID PRN #15 tab 01/23/18 HCl] Ibuprofen [Motrin] 600 mg PO Q6H PRN #20 tab 01/23/18 Albuterol HFA [Ventolin HFA 90 2 puff IH [id number] #2 units 01/24/18 mcg/actuation (8 g)] Ibuprofen [Motrin Tab] 1 tab PO QID #40 tab 01/24/18 Lidocaine 1 each TP DAILY #5 adh..patch 02/05/18 Ibuprofen [Motrin] 600 mg PO Q8 PRN #21 tab 04/05/18 - Allergies Allergies/Adverse Reactions: Allergies Allergy/AdvReac Type Severity Reaction Status Date / Time No Known Allergies Allergy Verified 02/06/18 02:38 Review of Systems ROS Statement: Except As Marked, All Systems Reviewed And Found Negative Cardiovascular: Positive for: Chest Pain Physical Exam - Reviewed Nursing Documentation Reviewed: Yes Vital Signs Reviewed: Yes - Physical Exam Appears: Positive for: Well, Non-toxic, No Acute Distress Head Exam: Positive for: ATRAUMATIC, NORMAL INSPECTION, NORMOCEPHALIC Skin: Positive for: Normal Color, Warm, DRY Eye Exam: Positive for: EOMI, Normal appearance, PERRL ENT: Positive for: Normal ENT Inspection Neck: Positive for: Normal, Painless ROM Cardiovascular/Chest: Positive for: Regular Rate, Rhythm. Negative for: Chest Non Tender (right chest wall tender by lateral pectoralis insertion by shoulder) Respiratory: Positive for: CNT, Normal Breath Sounds Gastrointestinal/Abdominal: Positive for: Normal Exam, Soft Back: Positive for: Normal Inspection Extremity: Positive for: Normal ROM Neurologic/Psych: Positive for: Alert, Oriented - ECG O2 Sat by Pulse Oximetry: 100 - Progress ED Course And Treament: Motrin 400mg x 1 dose Disposition - Clinical Impression Clinical Impression: Chest wall pain - Patient ED Disposition Is Patient to be Admitted: No - Disposition Referrals: [facility] [Outside] Disposition: Routine/Home Disposition Time: 04:01 Condition: FAIR Prescriptions: Ibuprofen [Motrin] 600 mg PO Q8 PRN #21 tab PRN Reason: Pain, Moderate (4-7) Instructions: Muscle Strain
[2018-04-05 05:11] VITALS: PULSE 89
== END 2018-04-05 04:30 | disposition home or self-care (01) ==
LOC: H.ER 03:34
DX: R07.89 Other chest pain (principal); F41.9 Anxiety disorder, unspecified; F31.9 Bipolar disorder, unspecified

== ENCOUNTER 2018-06-25 23:17 | Emergency (ER) | payer SELFPAY ==
[2018-06-25 23:17] VITALS: BMI 30.5
[2018-06-25 23:50] VITALS: TEMP 99.2
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
[2018-06-26 01:28] LABS: BASO # 0.1 K/uL (0.0-0.2); BASO % 0.5 % (0.0-2.0); EOS % 0.3 % (0.0-4.0); HEMOGLOBIN 15.8 g/dL (12.0-18.0); LYMPH # 1.4 K/uL (1.0-4.3); LYMPH % 10.5 % (20.0-40.0); MEAN CELL VOLUME 90.8 fl (80.0-94.0); MEAN CORPUSCULAR HEMOGLOBIN 30.6 pg (27.0-31.0); MEAN CORPUSCULAR HGB CONC 33.7 g/dL (33.0-37.0); MEAN PLATELET VOLUME 7.3 fl (7.2-11.7); MONO # 0.7 K/uL (0.0-0.8); MONO % 5.5 % (0.0-10.0); NEUT # 11.2 K/uL (1.8-7.0); NEUT % 83.2 % (50.0-75.0); RBC 5.16 Mil/uL (4.40-5.90); RED CELL DISTRIBUTION WIDTH 15.3 % (11.5-14.5); WHITE BLOOD COUNT 13.4 K/uL (4.8-10.8)
[2018-06-26 01:44] LABS: BLOOD UREA NITROGEN 15 mg/dl (9-20); GFR NON-AFRICAN AMERICAN > 60
[2018-06-26 01:55] LABS: BARBITURATES, UR NEGATIVE (NEGATIVE); BENZODIAZEPINES, UR NEGATIVE (NEGATIVE); OPIATES, UR NEGATIVE (NEGATIVE); PHENCYCLIDINE, UR POSITIVE (NEGATIVE)
[2018-06-26 02:22] VITALS: BP 137/84; PULSE 97; RESP 9
[2018-06-26 03:12] VITALS: O2SAT 96
== END 2018-06-26 03:00 ==
LOC: H.ER 23:17
DX: F16.10 Hallucinogen abuse, uncomplicated (principal); Z00.8 Encounter for other general examination
CPT/HCPCS: 80048; 85025; 99282; G0480